=== PATIENT | female | born 1970 | race Caucasian/White ===

== ENCOUNTER → 2019-02-15 | Outpatient (CLI) | payer BC, MEDICARE ==
[~2019-02-15] MED LIST: ALBU90OI INH; AMOX500 PO; AZIT250 PO; Ambien PO; BENZ100A PO; BUTASPCAF PO; BUTONI; CIPR500 PO; CLIN150 PO; CONEST.625 PO; CYAN100 PO; Coumadin6 MG PO; Cyclobenzaprine5 MG PO; DIPATR PO; ERGO50000 PO; ESCI10; ESCI10 PO; ESTNORT; ESTR1; ESTROGEN-METHY1 EAC1 PO; FLUC200 PO; FLUD.1 PO; GABA100; GABA300; GABA400; GABA600 PO; GABAPENTIN; HORMONES; HYDACE5 PO; HYDACE7.5; HYDACE7.5 PO; HYDGUAL120 PO; HYDMOR2 PO; HYDMOR4; HYDMOR4 PO; HYDMOR8 PO; LEVFLO500 PO; MECL25 PO; METR250 PO; Macrodantin100 MG PO; NEURONTIN; OXYACE5T PO; OXYACE7.5T PO; PROC10 PO; PROC25S PR; PROM12.5S PR; PROM25; PROM25 PO; PROM50S; RXONDA4ODT MM; RXOXYACE PO; RXPROM25 PO; RXTRAM50 PO; STADOL NASAL SPRAY; SULF10OPSA OS; SYNTEST; Synthroid125 MCG PO; TIZA4; TIZA4 PO; TOPI100; TOPI100 PO; TRAACE PO; TRAZ100 PO; Topamax PO; WARF1 PO; WARF5 PO; XARELTO20 MG PO; ZANAFLEX PO; ZOLP10; Zanaflex4 MG PO; Zofran Odt8 MG SL; [UNRECOGNIZED DRUG - OTHER] PO
[2019-02-15 19:17] LABS: Alanine Aminotransfer (ALT/SGP 19 U/L (12-78); Albumin, Blood 3.3 g/dL (3.4-5.0); Albumin/Globulin Ratio 0.9 (0.8-1.8); Alk Phos 116 U/L (50-136); Anion Gap 5 mmol/L (6-16); Aspartate Aminotrans (AST/SGOT 28 U/L (12-37); Bilirubin, Total 0.5 mg/dL (0.1-1.0); Blood Urea Nitrogen 10 mg/dL (8-24); Bun/Creatinine Ratio 11.2 (12.0-20.0); CO2, Blood 22 mmol/L (21-32); Calcium, Blood 8.1 mg/dL (8.5-10.1); Chloride, Blood 113 mmol/L (98-108); Creatinine, Blood 0.89 mg/dL (0.40-1.00); Globulin, Blood 3.5 g/dL (2.2-4.0); Glomerular Filtration Rate >60 (60-); Glucose, Blood 104 mg/dL (70-99); Potassium, Blood 4.7 mmol/L (3.5-5.5); Sodium, Blood 140 mmol/L (136-145); Total Protein, Blood 6.8 g/dL (6.4-8.2)
[2019-02-15 19:47] LABS: Percent Saturation 29.4 % (15.0-50.0)
== END | disposition home or self-care (01) ==
LOC: LAB SHORT 18:06 → LAB 18:06
PROVIDERS: Internal Medicine Hematology & Oncology
DX: D50.9 Iron deficiency anemia, unspecified (principal)
CPT/HCPCS: 80053; 83540; 83550

== ENCOUNTER 2019-02-28 14:29 | Emergency (ER) | payer BC, MEDICARE ==
[~2019-02-28] VITALS: Ht 167.6 cm; Wt 77.1 kg
[2019-02-28 16:58] LABS: BASOPHILS ABSOLUTE AUTO 0.03 K/mm3 (0.00-0.23); BASOPHILS PERCENT AUTO 1 % (0-2); EOSINOPHILS PERCENT AUTO 2 % (0-6); Hematocrit 37.3 % (33.0-51.0); Hemoglobin 11.1 g/dL (11.5-16.0); IMMATURE GRAN ABSOLUTE AUTO 0.01 K/mm3 (0.00-0.10); IMMATURE GRAN PERCENT AUTO 0 % (0-1); LYMPHOCYTES ABSOLUTE AUTO 0.72 K/mm3 (0.84-5.20); LYMPHOCYTES PERCENT AUTO 17 % (21-46); MONOCYTES ABSOLUTE AUTO 0.24 K/mm3 (0.16-1.47); MONOCYTES PERCENT AUTO 6 % (4-13); Mean Corpuscular HGB 25.9 pg (26.0-34.0); Mean Corpuscular HGB Conc 29.8 g/dL (31.5-36.5); Mean Corpuscular Volume 87 fL (80-100); Mean Platelet Volume 11.6 fL (9.1-12.4); NEUTROPHILS ABSOLUTE AUTO 3.11 K/mm3 (1.96-9.15); NEUTROPHILS PERCENT AUTO 74 % (41-73); Platelet Count 232 K/mm3 (150-400); RDW Coefficient Variation 15.5 % (11.7-14.2); RDW Standard Deviation 48.7 fL (35.1-46.3); Red Blood Cell Count 4.29 M/mm3 (3.80-5.20); White Blood Cell Count 4.21 K/mm3 (4.00-11.30)
[2019-02-28 17:24] LABS: Alanine Aminotransfer (ALT/SGP 19 U/L (12-78); Albumin, Blood 2.8 g/dL (3.4-5.0); Albumin/Globulin Ratio 0.8 (0.8-1.8); Alk Phos 103 U/L (50-136); Anion Gap 8 mmol/L (6-16); Aspartate Aminotrans (AST/SGOT 18 U/L (12-37); Bilirubin, Total 0.2 mg/dL (0.1-1.0); Blood Urea Nitrogen 10 mg/dL (8-24); Bun/Creatinine Ratio 9.8 (12.0-20.0); CO2, Blood 20 mmol/L (21-32); Calcium, Blood 7.4 mg/dL (8.5-10.1); Chloride, Blood 115 mmol/L (98-108); Creatinine, Blood 1.02 mg/dL (0.40-1.00); Globulin, Blood 3.4 g/dL (2.2-4.0); Glomerular Filtration Rate >60 (60-); Glucose, Blood 79 mg/dL (70-99); Potassium, Blood 3.9 mmol/L (3.5-5.5); Sodium, Blood 143 mmol/L (136-145); Total Protein, Blood 6.2 g/dL (6.4-8.2); Troponin I <0.015 ng/mL (0.000-0.040)
== END 2019-02-28 18:01 | disposition home or self-care (01) ==
LOC: ER 14:29
PROVIDERS: Emergency Medicine
DX: R55 Syncope and collapse (principal); Z88.8 Allergy status to other drugs, medicaments and biological substances; Z88.6 Allergy status to analgesic agent; Z88.0 Allergy status to penicillin; Z88.2 Allergy status to sulfonamides; Z88.5 Allergy status to narcotic agent; Z79.899 Other long term (current) drug therapy; G43.909 Migraine, unspecified, not intractable, without status migrainosus
CPT/HCPCS: 73610; 80053; 83735; 84484; 85025; 93005; 93010; 96374; 99284-25; J1200; J7030

== ENCOUNTER 2019-03-19 10:18 | Day surgery (SDC) | payer BC, MEDICARE ==
[~2019-03-19] VITALS: Ht 170.2 cm; Wt 78.1 kg
[2019-03-19] MEDS ORDERED: WARF7.5 (11:15)
--- NOTE | 2019-03-19 12:52 | NUR ---
03/19/19 1252 Aicha Brito AFTER MULTIPKLE IV ATTEMPTS DR CUMMINGS STARTED AN IJ LINE. PT TOLERATED PROCEDURE WELL WITH A LITTLE NAUSEA, BENEDRYL WAS GIVE PER ARIE CUMMINGS.
--- NOTE | 2019-03-19 13:36 | NUR ---
03/19/19 1336 Aicha Brito 500 ML BOLUS OF LR GIVEN DURING PROCEDURE PER DR. CUMMINGS.
--- NOTE | 2019-03-19 14:33 | NUR ---
03/19/19 1433 Veronika Mcnamara PT COMPLAINED OF NAUSEA UPON ARRIVING TO STEP DOWN. REST OF THE IV BAG TO BE FINISHED PER DR CUMMINGS'S ORDERS. DR OSEGUERA NOTIFIED OF PT'S NAUSEA. DR OSEGUERA STATED THAT PT HAD ALLERGIES TO MOST ANTIEMETICS. PT DID NOT VOMIT WHILE IN STEP DOWN. PT STATED NAUSEA "FELT BETTER" AND SHE WANTED TO GO HOME. DR CUMMINGS NOTIFIED. DR CUMMINGS WATCHED RN REMOVE THE IJ AND INSTRUCTED TO HOLD PRESSURE AT THE SITE FOR 5 MINUTES. CATHETER TIP WAS INTACT UPON REMOVAL. OP SITE APPLIED AT THE SITE AFTER 5 MINUTES OF PRESSURE. NO OOZING VISABLE. RN INSTRUCTED PT TO CONTACT DR OSEGUERA'S OFFICE IS OOZING OCCURS AND TO HOLD PRESSURE AT THE SITE. PT VERBALIZED UNDERSTANDING.
== END 2019-03-19 14:30 | disposition home or self-care (01) ==
LOC: ORSCSDS 10:18
PROVIDERS: Student in an Organized Health Care Education/Training Program
PROC: 0DJD8ZZ Inspection of Lower Intestinal Tract, Via Natural or Artificial Opening Endoscopic (ICD-10-PCS; principal; 2019-03-19 11:15)
DX: K62.5 Hemorrhage of anus and rectum (principal); D64.9 Anemia, unspecified; K64.8 Other hemorrhoids; G60.0 Hereditary motor and sensory neuropathy; Z86.718 Personal history of other venous thrombosis and embolism; Z79.01 Long term (current) use of anticoagulants; D46.9 Myelodysplastic syndrome, unspecified; Z79.899 Other long term (current) drug therapy
CPT/HCPCS: J1100; J1200; J2001; J2704; J7120

== ENCOUNTER → 2019-03-30 | Outpatient (CLI) | payer BC, MEDICARE ==
[~2019-03-30] MED LIST changes: +WARF7.5
[2019-03-30 15:34] LABS: Percent Saturation 35.3 % (15.0-50.0)
== END | disposition home or self-care (01) ==
LOC: LAB 15:06 → LAB SHORT 15:06
PROVIDERS: Internal Medicine Hematology & Oncology
DX: D64.9 Anemia, unspecified (principal)
CPT/HCPCS: 82728; 83540; 83550

== ENCOUNTER 2019-09-12 10:54 | Observation (INO) | payer BC, MEDICARE ==
[~2019-09-12] VITALS: Ht 167.6 cm; Wt 87.1 kg
[~2019-09-12 10:54] MED LIST changes: +TROKENDI XR200 MG PO
[2019-09-12] MEDS ORDERED: Ropinirole HCl0.5 MG PO (11:25)
[2019-09-12] MEDS ORDERED: XARELTO20 MG PO (11:26)
[2019-09-12 12:01] LABS: BASOPHILS ABSOLUTE AUTO 0.09 K/mm3 (0.00-0.23); BASOPHILS PERCENT AUTO 2 % (0-2); EOSINOPHILS PERCENT AUTO 5 % (0-6); Hematocrit 40.3 % (33.0-51.0); Hemoglobin 11.4 g/dL (11.5-16.0); IMMATURE GRAN ABSOLUTE AUTO 0.01 K/mm3 (0.00-0.10); IMMATURE GRAN PERCENT AUTO 0 % (0-1); LYMPHOCYTES ABSOLUTE AUTO 1.07 K/mm3 (0.84-5.20); LYMPHOCYTES PERCENT AUTO 18 % (21-46); MONOCYTES PERCENT AUTO 5 % (4-13); Mean Corpuscular HGB 23.5 pg (26.0-34.0); Mean Corpuscular HGB Conc 28.3 g/dL (31.5-36.5); Mean Corpuscular Volume 83 fL (80-100); Mean Platelet Volume 9.7 fL (9.1-12.4); NEUTROPHILS ABSOLUTE AUTO 4.17 K/mm3 (1.96-9.15); NEUTROPHILS PERCENT AUTO 70 % (41-73); Platelet Count 253 K/mm3 (150-400); RDW Coefficient Variation 14.6 % (11.7-14.2); RDW Standard Deviation 43.8 fL (35.1-46.3); Red Blood Cell Count 4.85 M/mm3 (3.80-5.20); White Blood Cell Count 5.94 K/mm3 (4.00-11.30)
[2019-09-12 12:26] LABS: Alanine Aminotransfer (ALT/SGP 25 U/L (12-78); Albumin, Blood 3.5 g/dL (3.4-5.0); Albumin/Globulin Ratio 0.8 (0.8-1.8); Alk Phos 100 U/L (50-136); Anion Gap 6 mmol/L (6-16); Aspartate Aminotrans (AST/SGOT 10 U/L (12-37); Bilirubin, Total 0.2 mg/dL (0.1-1.0); Blood Urea Nitrogen 11 mg/dL (8-24); Bun/Creatinine Ratio 10.6 (12.0-20.0); CO2, Blood 20 mmol/L (21-32); Calcium, Blood 8.6 mg/dL (8.5-10.1); Chloride, Blood 114 mmol/L (98-108); Creatinine, Blood 1.04 mg/dL (0.40-1.00); Globulin, Blood 4.4 g/dL (2.2-4.0); Glomerular Filtration Rate >60 (60-); Glucose, Blood 106 mg/dL (70-99); Potassium, Blood 3.6 mmol/L (3.5-5.5); Sodium, Blood 140 mmol/L (136-145); Total Protein, Blood 7.9 g/dL (6.4-8.2)
[2019-09-12] MEDS ORDERED: Spironolactone25 MG PO (14:21)
[2019-09-12] MEDS ORDERED: AMIL5 PO (14:22)
[2019-09-12] MEDS ORDERED: PANTOPRAZOLE SO40 M2 PO (14:26)
[2019-09-12] MEDS ORDERED: CYANOCOBAL1000 MCG/1 IM (14:27)
[2019-09-12] MEDS ORDERED: HYDMOR8 PO (15:23)
[2019-09-12] MEDS ORDERED: GABAPENTIN600 MG PO (15:26)
[2019-09-12] MEDS ORDERED: Midodrine HCl10 MG PO (15:28)
[2019-09-12] MEDS ORDERED: Fludrocortison0.1 MG PO (15:28)
[2019-09-12] MEDS ORDERED: HYDCOR10 PO (15:34)
[2019-09-12 16:37] LABS: Anion Gap 6 mmol/L (6-16); Blood Urea Nitrogen 11 mg/dL (8-24); Bun/Creatinine Ratio 11.1 (12.0-20.0); CO2, Blood 19 mmol/L (21-32); Calcium, Blood 8.4 mg/dL (8.5-10.1); Chloride, Blood 117 mmol/L (98-108); Creatinine, Blood 0.99 mg/dL (0.40-1.00); Glomerular Filtration Rate >60 (60-); Glucose, Blood 98 mg/dL (70-99); Sodium, Blood 142 mmol/L (136-145)
--- NOTE | 2019-09-12 17:06 | NUR ---
Gabapentin Home Med Rec Called Dr. James LEPE Gabapentin on EMAR not matching Med Rec per patient. Orders received.
--- NOTE | 2019-09-12 18:42 | NUR ---
Shift Summary A/Ox4. Pleasant and cooperative with care. Patient arrived from ER @ 1520 via stretcher and transferred over x 1 assist. Report given by ER states patient is positive for orthostatic hypotension. Bed alarm on, 1 p SBA, bedside commode at this time for safety. Medicated for nausea x 1 and chronic pain x 1. No other concerns at this time.
[2019-09-12] MEDS ORDERED: Diphenhydramine50 M1 PO (18:55)
--- NOTE | 2019-09-12 20:39 | NUR ---
2017: SPOKE TO JESSI POSEY REGARDING PATIENT REQ FOR BENEDRYL 50MG IV Q4 SHE TAKES AT HOME. ALSO CORTISONE SHE TAKES 20MG IN THE AM AND 10 MG AT DINNER TIME. SHE SAYS IT WIRES HER UP IF SHE TAKES IT AT BEDTIME. ALSO FLORINEF SHE TAKES IN THE AM NOT AT BEDTIME. RELAYED THIS INFO TO JESSI POSEY. 2041: PATIENT JUST HAD HER 2ND WATERY STOOL AMIN IN COLOR SMELL LIKE C-DIFF. PER PATIENT SHE WAS DX WITH CDIFF SEVERAL YEARS AGO. TOOK SAMPLE AND PLACED ON CONTACT ISOLATION PER PROTOCOL PENDING RESULTS. SPOKE TO VENEER SANDER REGARDING PROPER PROCEDURE TO ORDER THE LAB TO R/O CDIFF.
--- NOTE | 2019-09-12 23:51 | NUR ---
PT REFUSES SCDS. PT ON [place]
[2019-09-13 06:20] LABS: BASOPHILS ABSOLUTE AUTO 0.08 K/mm3 (0.00-0.23); BASOPHILS PERCENT AUTO 1 % (0-2); EOSINOPHILS ABSOLUTE AUTO 0.33 K/mm3 (0.00-0.68); EOSINOPHILS PERCENT AUTO 6 % (0-6); Hematocrit 37.6 % (33.0-51.0); IMMATURE GRAN ABSOLUTE AUTO 0.02 K/mm3 (0.00-0.10); IMMATURE GRAN PERCENT AUTO 0 % (0-1); LYMPHOCYTES ABSOLUTE AUTO 1.49 K/mm3 (0.84-5.20); LYMPHOCYTES PERCENT AUTO 26 % (21-46); MONOCYTES ABSOLUTE AUTO 0.33 K/mm3 (0.16-1.47); MONOCYTES PERCENT AUTO 6 % (4-13); Mean Corpuscular HGB 24.1 pg (26.0-34.0); Mean Corpuscular HGB Conc 29.3 g/dL (31.5-36.5); Mean Corpuscular Volume 83 fL (80-100); Mean Platelet Volume 9.9 fL (9.1-12.4); NEUTROPHILS ABSOLUTE AUTO 3.48 K/mm3 (1.96-9.15); NEUTROPHILS PERCENT AUTO 61 % (41-73); Platelet Count 250 K/mm3 (150-400); RDW Coefficient Variation 14.6 % (11.7-14.2); RDW Standard Deviation 43.7 fL (35.1-46.3); Red Blood Cell Count 4.56 M/mm3 (3.80-5.20); White Blood Cell Count 5.73 K/mm3 (4.00-11.30)
--- NOTE | 2019-09-13 06:29 | NUR ---
END OF SHIFT: PATIENT SLEPT INTERMITTENTLY; C/O PAIN 5-8/10 AND WAS TREATED WITH MEDS PER EMAR, REPOSITIONING, WARM BLANKETS. SHE WAS PLEASANT AND COOPERATIVE WITH CARE. I THINK HER PAIN WAS SOMEWHAT CONTROLLED AND SHE MAY NEED TO DISCUSS PAIN COVERAGE WITH THE DOCTOR. PATIENT WAS OOB TO THE COMMODE FREQUENTLY WITH WATERY STOOLS AND A SAMPLE WS SENT TO RULE OUT C-DIFF. PT MEETS THE CRITERIA. ALL OF THIS WAS REPORTED TO JESSI POSEY. AND THE DAY NURSE WELL. BED LOW AND ALARMED. CALL DOSHI WITHIN REACH
[2019-09-13 06:37] LABS: Anion Gap 8 mmol/L (6-16); Blood Urea Nitrogen 10 mg/dL (8-24); Bun/Creatinine Ratio 10.1 (12.0-20.0); CO2, Blood 20 mmol/L (21-32); Calcium, Blood 8.5 mg/dL (8.5-10.1); Chloride, Blood 117 mmol/L (98-108); Creatinine, Blood 0.99 mg/dL (0.40-1.00); Glomerular Filtration Rate >60 (60-); Glucose, Blood 92 mg/dL (70-99); Magnesium, Blood 1.8 mg/dL (1.6-2.4); Potassium, Blood 3.7 mmol/L (3.5-5.5); Sodium, Blood 145 mmol/L (136-145)
--- NOTE | 2019-09-13 16:50 | NUR ---
Initial palliative care consult: Meri is a 49 year old lady with a history of muscular dystrophy, lisa's disease dx'd in 2018, hypotension. She was admitted on 09/12/19 as she was brought in via ambulance from Dr. Aparicio's office. She tells this marketing copywriter that a local doctor does not think that she has lisa's disease and this is very frustrating to her. Meri lives with her . She has two adult children ages 22 and 29. She reports that she has a good family and friend support system. She states she has really good health insurance through her 's work. She has not worked outside of her home for the past 13 or so years due to her chronic medical problems. She states she is normally independent with ADLs at home and has all the medical equipment she needs at home. She does report that when her blood pressure is low and she feels off that she doesn't get up unless her is home. 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 Meri states she feels that she has to be an advocate for herself. She states it is exhausting to have to feel like she has to explain herself to doctors. She states once in [place] she saw a psychologist during an admission to prove that she did not have any mental illness because of her multiple admissions. She normally goes to [facility] in [place] when she has to be admitted as she reports she had a bad experience in the ER at [facility]. She does state that she has been happy with her care here this visit. This visit was mainly a therapeutic visit to establish a rapport and to evaluate how she is coping with her chronic illness. She is followed by a pain specialist in [place] and has been prescribed her pain medication as an inpatient to match what the [place] doctor has her on according to her nurse. She has multiple drug allergies. PC will plan to continue to follow for therapeutic visits and symptom managment as needed.
--- NOTE | 2019-09-13 17:22 | NUR ---
SHIFT SUMMARY SPOKE WITH DR. WILLETT OFFICE ABOUT PT MEDICATIONS AND OFFICE REPORTED THEY WEREN'T HER PCP. SPOKE WITH PT AND SHE REPORTED THEY WERE. DID OBTAIN PAIN CONTROL MDS NAME AND NUMBER. CALLED AND SPOKE WITH DR. ROSINA MURRAY'S OFFICE AND THEIR LAST SCRIPTS THAT WERE WRITTEN IN JUN WERE FOR DILAUDID 8MG TID NTE 3 TABS PER DAY. PT REPORTS SHE TAKES DILAUDID 8MG EVERY 3 HOURS WHEN AT HOME. WHEN ASKED HOW SHE DOESN'T RUN OUT SHE SAYS "I DON'T KNOW I JUST HAVE ENOUGH". BECAME ANXIOUS AND DEFENSIVE WHEN SPEAKING TO HER ABOUT BENEDRYL FREQUENCY AND INSISTED NOC RN OBTAINED ORDER TO INCREASE IT TO Q4H. WAS ABLE TO CORRECT IN EMR. FAMILY IN AND OUT OF ROOM. DID ASSIST WITH HER GOING TO COMMODE-SHE SAT ON SIDE OF BED FOR A COUPLE MINUTES AND THEN SLID TO COMMODE WITHOUT STANDING UP STRAIGHT. REPORTED FEELING VERY NAUSEATED AT THE TIME. ABLE TO ANSWER IN 2 WORD SENTENCES. APPEARS SHAKEY MOST OF THE TIME.
--- NOTE | 2019-09-14 06:02 | NUR ---
SHIFT SUMMARY NO ACUTE EVENTS OVERNIGHT. PATIENT REQUIRING MULTIPLE DOSES OF PAIN MEDICATION AND REQUESTED IV BENADRYL ON MULTIPLE OCCASIONS FOR NAUSEA. PATIENT STATES SHE HAS OFF/ON VOMITING BUT NO VOMIT OBSERVED BY THIS NURSE. AAOX4. UP TO BSC WITH 1 PERSON ASSIST. USES CALL LIGHT APPROPRIATELY. PATIENT DID NOT SLEEP AT ALL DURING NOC SHIFT. WILL CONTINUE TO MONITOR.
[2019-09-14 06:07] LABS: Anion Gap 8 mmol/L (6-16); Blood Urea Nitrogen 12 mg/dL (8-24); Bun/Creatinine Ratio 11.5 (12.0-20.0); CO2, Blood 19 mmol/L (21-32); Calcium, Blood 8.1 mg/dL (8.5-10.1); Chloride, Blood 117 mmol/L (98-108); Creatinine, Blood 1.04 mg/dL (0.40-1.00); Glomerular Filtration Rate >60 (60-); Glucose, Blood 93 mg/dL (70-99); Magnesium, Blood 1.8 mg/dL (1.6-2.4); Potassium, Blood 3.4 mmol/L (3.5-5.5); Sodium, Blood 144 mmol/L (136-145)
[2019-09-14 14:07] LABS: Bun/Creatinine Ratio 11.1 (12.0-20.0); Calcium, Blood 8.4 mg/dL (8.5-10.1); Creatinine, Blood 1.08 mg/dL (0.40-1.00); Potassium, Blood 4.2 mmol/L (3.5-5.5)
[2019-09-14] MEDS ORDERED: POTCHL20ER PO (15:48)
[2019-09-14] MEDS ORDERED: Anti-Diarrheal2 MG PO (15:49)
--- NOTE | 2019-09-14 15:52 | NUR ---
DISCHARGE SUMMARY CORBY DISCHARGING HOME, DECLINED HH. STATES SHE WANTS TO MAKE HER OWN APPOINTMENTS WITH [facility] AND WITH [facility], BUT I MADE AN APPOINTMENT FOR HER FOR SEP [address] GILL. PT AND OT WORKED IWTH HER, WITH ENCOURAGING SLOW MOVEMENT AND TAKING TIME IN SITITNG POSITION, HER ORTHOSTATICS ARE DOING MUCH BETTER, SEE PT AND OT NOTES FROM TODAY. POWERGLIDE REMOVED, PAPERWORK GONE OVER, MEDS FAXED TO [facility]. PT LEAVING VIA WHEELCHAIR.
== END 2019-09-14 16:43 | disposition home health service (06) ==
LOC: ER 10:54 → MEDS 10:55
PROVIDERS: Emergency Medicine; ADMIT Internal Medicine
DX: I95.1 Orthostatic hypotension (principal); G90.9 Disorder of the autonomic nervous system, unspecified; R19.7 Diarrhea, unspecified; E87.6 Hypokalemia; E27.49 Other adrenocortical insufficiency; G43.909 Migraine, unspecified, not intractable, without status migrainosus; G71.09 Other specified muscular dystrophies; D51.0 Vitamin B12 deficiency anemia due to intrinsic factor deficiency; N25.89 Other disorders resulting from impaired renal tubular function; M10.9 Gout, unspecified; E66.9 Obesity, unspecified; Z68.29 Body mass index [BMI] 29.0-29.9, adult; Z95.0 Presence of cardiac pacemaker; Z90.49 Acquired absence of other specified parts of digestive tract; Z88.0 Allergy status to penicillin; Z88.1 Allergy status to other antibiotic agents; Z88.2 Allergy status to sulfonamides; Z88.5 Allergy status to narcotic agent; Z88.6 Allergy status to analgesic agent; Z88.8 Allergy status to other drugs, medicaments and biological substances; Z79.01 Long term (current) use of anticoagulants; Z79.899 Other long term (current) drug therapy; Z86.718 Personal history of other venous thrombosis and embolism
CPT/HCPCS: 36415; 80048; 80053; 82330; 83735; 85025; 87493; 93005; 93010; 96361; 96365; 96375; 96376; 97110; 97162; 97167; 97530; 99285-25; C1751; G0378; J1200; J3480; J7030; J7040; Q0163

== ENCOUNTER 2020-02-22 17:36 | Emergency (ER) | payer BC, MEDICARE ==
[~2020-02-22] VITALS: Ht 167.6 cm; Wt 74.8 kg
[~2020-02-22 17:36] MED LIST changes: +Anti-Diarrheal2 MG PO; +DOCU100 PO; +Diphenhydramine50 M1 IV; -ESTROGEN-METHY1 EAC1 PO; +Fludrocortison0.1 MG PO; +Midodrine HCl10 MG PO; +PANTOPRAZOLE SO40 M2 PO; +POTCHL20ER PO; +SENN187 PO; +SPIR25 PO; +Spironolactone25 MG PO; -TRAZ100 PO
[2020-02-22 20:32] LABS: BASOPHILS ABSOLUTE AUTO 0.03 K/mm3 (0.00-0.23); BASOPHILS PERCENT AUTO 1 % (0-2); EOSINOPHILS PERCENT AUTO 2 % (0-6); Hematocrit 39.4 % (33.0-51.0); Hemoglobin 11.2 g/dL (11.5-16.0); IMMATURE GRAN ABSOLUTE AUTO 0.01 K/mm3 (0.00-0.10); IMMATURE GRAN PERCENT AUTO 0 % (0-1); LYMPHOCYTES ABSOLUTE AUTO 0.96 K/mm3 (0.84-5.20); LYMPHOCYTES PERCENT AUTO 23 % (21-46); MONOCYTES ABSOLUTE AUTO 0.48 K/mm3 (0.16-1.47); MONOCYTES PERCENT AUTO 11 % (4-13); Mean Corpuscular HGB 23.9 pg (26.0-34.0); Mean Corpuscular HGB Conc 28.4 g/dL (31.5-36.5); Mean Corpuscular Volume 84 fL (80-100); Mean Platelet Volume 10.5 fL (9.1-12.4); NEUTROPHILS ABSOLUTE AUTO 2.66 K/mm3 (1.96-9.15); NEUTROPHILS PERCENT AUTO 63 % (41-73); Platelet Count 219 K/mm3 (150-400); Red Blood Cell Count 4.69 M/mm3 (3.80-5.20); White Blood Cell Count 4.24 K/mm3 (4.00-11.30)
[2020-02-22 20:54] LABS: Albumin, Blood 3.6 g/dL (3.4-5.0); Albumin/Globulin Ratio 0.8 (0.8-1.8); Bilirubin, Total 0.5 mg/dL (0.1-1.0); Bun/Creatinine Ratio 11.8 (12.0-20.0); Calcium, Blood 8.6 mg/dL (8.5-10.1); Creatinine, Blood 1.1 mg/dL (0.40-1.00); Globulin, Blood 4.6 g/dL (2.2-4.0); Total Protein, Blood 8.2 g/dL (6.4-8.2)
[2020-02-22] MEDS ORDERED: Keflex500 MG PO (21:03)
[2020-02-23] MEDS ORDERED: FOLI1 PO (13:18)
[2020-02-23] MEDS ORDERED: TRAZ100 PO (13:18)
[2020-02-23] MEDS ORDERED: HYDMOR8 PO (13:18)
[2020-02-23] MEDS ORDERED: Sodium Bicarbo650 MG PO (13:18)
[2020-02-23] MEDS ORDERED: DIPHENHYDR50 MG/1 M1 IV (13:21)
[2020-02-23] MEDS ORDERED: Ropinirole HCl0.5 MG PO (13:22)
[2020-02-23] MEDS ORDERED: TROKENDI XR200 MG PO (13:23)
[2020-02-23] MEDS ORDERED: GABAPENTIN600 MG PO (13:23)
[2020-02-23] MEDS ORDERED: XARELTO20 M1 PO (13:23)
[2020-02-23] MEDS ORDERED: AMIL5 PO (13:58)
[2020-02-23] MEDS ORDERED: Potassium Chlo20 ME1 PO (13:58)
[2020-02-23] MEDS ORDERED: SPIR25 PO (13:59)
[2020-02-23] MEDS ORDERED: ESTROGEN-METHY1 EAC1 PO (14:09)
[2020-02-23] MEDS ORDERED: Zanaflex4 MG PO (14:09)
[2020-02-23] MEDS ORDERED: Hydrocortisone5 MG PO (14:10)
[2020-02-23] MEDS ORDERED: CYANOCOBAL1000 MCG/1 IM (14:10)
[2020-02-23] MEDS ORDERED: Midodrine HCl10 MG PO (14:11)
[2020-02-23] MEDS ORDERED: Fludrocortison0.1 MG PO (14:11)
== END 2020-02-22 21:28 | disposition home or self-care (01) ==
LOC: ER 17:36
PROVIDERS: Emergency Medicine
DX: L03.113 Cellulitis of right upper limb (principal); M79.89 Other specified soft tissue disorders; L53.9 Erythematous condition, unspecified; G71.00 Muscular dystrophy, unspecified; C95.90 Leukemia, unspecified not having achieved remission; Z86.718 Personal history of other venous thrombosis and embolism; Z88.0 Allergy status to penicillin; Z88.1 Allergy status to other antibiotic agents; Z88.2 Allergy status to sulfonamides; Z88.5 Allergy status to narcotic agent; Z88.6 Allergy status to analgesic agent; Z88.8 Allergy status to other drugs, medicaments and biological substances; Z79.899 Other long term (current) drug therapy
CPT/HCPCS: 36415; 80053; 83605; 84145; 85025; 99283; A9270-GY

== ENCOUNTER → 2020-02-26 | Outpatient (CLI) | payer BC, MEDICARE ==
[~2020-02-26] MED LIST changes: +AMIL5 PO; +CYANOCOBAL1000 MCG/1 IM; +DIPHENHYDR50 MG/1 M1 IM; +DIPHENHYDR50 MG/1 M1 IV; +ESTROGEN-METHY1 EAC1 PO; +FOLI1 PO; +GABAPENTIN600 MG PO; +Hydrocortisone5 MG PO; +Keflex500 MG PO; +Potassium Chlo20 ME1 PO; +Ropinirole HCl0.5 MG PO; +Sodium Bicarbo650 MG PO; +TRAZ100 PO; +XARELTO20 M1 PO
== END | disposition home or self-care (01) ==
LOC: LAB SHORT 18:07 → LAB 18:07
DX: L08.9 Local infection of the skin and subcutaneous tissue, unspecified (principal)
CPT/HCPCS: 87070; 87075; 87077; 87186; 87205

== ENCOUNTER 2020-02-27 15:08 | Emergency (ER) | payer BC, MEDICARE ==
[~2020-02-27] VITALS: Ht 170.2 cm; Wt 74.4 kg
[~2020-02-27 15:08] MED LIST changes: -DIPHENHYDR50 MG/1 M1 IM
[2020-02-27] MEDS ORDERED: HYDMOR4 PO (16:19)
[2020-02-27] MEDS ORDERED: DIPHENHYDR50 MG/1 M1 IM (16:27)
== END 2020-02-27 18:28 | disposition home or self-care (01) ==
LOC: ER 15:08
DX: L03.113 Cellulitis of right upper limb (principal); Z79.899 Other long term (current) drug therapy; Z86.718 Personal history of other venous thrombosis and embolism; Z88.6 Allergy status to analgesic agent; Z88.8 Allergy status to other drugs, medicaments and biological substances; Z88.0 Allergy status to penicillin; Z88.2 Allergy status to sulfonamides; Z88.5 Allergy status to narcotic agent; G71.00 Muscular dystrophy, unspecified
CPT/HCPCS: 76882; 96372; 99283-25; J1170

== ENCOUNTER 2020-03-23 08:43 | Emergency (ER) | payer BC, MEDICARE ==
[~2020-03-23] VITALS: Ht 170.2 cm; Wt 76.7 kg
[~2020-03-23 08:43] MED LIST changes: +DIPHENHYDR50 MG/1 M1 IM
== END 2020-03-23 09:45 | disposition home or self-care (01) ==
LOC: ER 08:43
DX: G43.909 Migraine, unspecified, not intractable, without status migrainosus (principal); Z88.0 Allergy status to penicillin; Z88.2 Allergy status to sulfonamides; Z88.5 Allergy status to narcotic agent; Z88.8 Allergy status to other drugs, medicaments and biological substances; Z79.899 Other long term (current) drug therapy; Z86.718 Personal history of other venous thrombosis and embolism
CPT/HCPCS: 96372; 99283-25; J0780; J1200; J1885

== ENCOUNTER 2020-05-20 10:07 | Day surgery (SDC) | payer BC, MEDICARE ==
[~2020-05-20] VITALS: Ht 167.6 cm; Wt 78.0 kg
--- NOTE | 2020-05-20 11:30 | NUR ---
VANCO PREVIOUSLY STARTED BY SONIDO BAR RN TO RIGHT HAND. HAND APPEARS WARM AND RED, PROVIDER ORDERED TO STOP VANCO AND START CLINDAMYCIN. REDNESS OUTLINE MARKED WITH BLACK MARKER. WILL CONTINUE TO MONITOR.
--- NOTE | 2020-05-20 12:36 | NUR ---
1110 STARTED VANCOMYCIN TO THE 24G PIV TO THE RIGHT HAND. STAFF NOTICED REDNESS TO THE PIV SITE. STOPPED VANCOMYCIN AND MD NOTIFIED. VANCOMYCIN IV DISCONTINUED AND CLINDAMYCIN IV STARTED. CONTINUED TO MONITOR.
--- NOTE | 2020-05-20 13:09 | NUR ---
RIGHT HAND APPEARS TO BE PINK, WARM, AND DRY. REDNESS HAS SUBSIDED. PT REPORTS NO PAIN OR SWELLING. PERIPHERAL IV STILL IN PLACE, TEGADERM INTACT, IV SALINE LOCKED. MEDIPORT SITE ON CHEST APPEARS SOFT NON TENDER. DRESSING INTACT. PT C/O NAUSEA, PREVIOUSLY MEDICATED DURING PROCEDURE. PT APPEARS DROWSY. WILL CONTINUE TO MONITOR.
--- NOTE | 2020-05-20 14:40 | NUR ---
PT VERBALIZES UNDERSTANDING WRITTEN AND VERBAL ORDERS. PT DRESSES SELF WITHOUT DIFF. R UPPER CHEST SITE REMAINS CLEAR. DRY BANDAGE WITH TEGADERM IN PLACE. NO BLEEDING NOTED. VSS. PT IV DC'D.CATH INTACT. PRESSURE DSG APPLIED. PT DC TO HOME VIA SO BY SUSY.
== END 2020-05-20 14:45 | disposition home or self-care (01) ==
LOC: MHTC 10:07
DX: T82.7XXA Infection and inflammatory reaction due to other cardiac and vascular devices, implants and grafts, initial encounter (principal); Y83.1 Surgical operation with implant of artificial internal device as the cause of abnormal reaction of the patient, or of later complication, without mention of misadventure at the time of the procedure; I95.9 Hypotension, unspecified; I12.9 Hypertensive chronic kidney disease with stage 1 through stage 4 chronic kidney disease, or unspecified chronic kidney disease; N18.9 Chronic kidney disease, unspecified; D46.9 Myelodysplastic syndrome, unspecified; Z95.0 Presence of cardiac pacemaker; G60.0 Hereditary motor and sensory neuropathy; Z88.5 Allergy status to narcotic agent; Z88.6 Allergy status to analgesic agent; Z88.2 Allergy status to sulfonamides; Z88.0 Allergy status to penicillin; Z88.8 Allergy status to other drugs, medicaments and biological substances; Z79.899 Other long term (current) drug therapy; Z79.01 Long term (current) use of anticoagulants
CPT/HCPCS: 36561; 76937; 99152; 99153; C1788; C1894; J1200; J1642; J2060; J2250; J3370; J7040

== ENCOUNTER → 2020-08-21 | Outpatient (CLI) | payer BC, MEDICARE ==
[~2020-08-21] MED LIST changes: +CYAN1000I IM; +ESTROGEN-METHY1 EAC3 PO
== END | disposition home or self-care (01) ==
LOC: LAB 15:23 → LAB SHORT 15:23
DX: N18.2 Chronic kidney disease, stage 2 (mild) (principal); D63.1 Anemia in chronic kidney disease; R73.09 Other abnormal glucose; E83.41 Hypermagnesemia
CPT/HCPCS: 85018

== ENCOUNTER 2020-09-11 11:21 | Day surgery (SDC) | payer BC, MEDICARE ==
[~2020-09-11] VITALS: Ht 182.9 cm; Wt 71.0 kg
--- NOTE | 2020-09-11 15:05 | NUR ---
FULL REPORT PROVIDED JAMEY DALY TO ASSUME CARE OF PT IN RECOVERY ROOM.
--- NOTE | 2020-09-11 17:45 | NUR ---
PATIENT GIVEN 50MG OS BENADRYL IV FOR NAUSEA.
--- NOTE | 2020-09-11 18:08 | NUR ---
patient returned to recovery room via bed, A&O, c/o nausea. benadryl iv ordered by Dr Gee
--- NOTE | 2020-09-11 18:15 | NUR ---
PATIENT STATES THAT NAUSEA HAS SUBSIDED
--- NOTE | 2020-09-11 18:30 | NUR ---
IV DECED WITH CATHETER INTACT. DRESSING TO RIGHT UPPER CHEST DRY AND INTACT. C/O DISCOMFORT RIGHT UPPER CHEST WITH MOVEMENT. NAUSEA SUBSIDED. DISCHARGE INSTRUCTIONS AND PRECAUTIONS GIVEN TO PATIENT. PATIENT TRANSFERRED TO [facility] CAR VIA WHEEL CHAIR A&O. DRIVING.
== END 2020-09-11 23:24 | disposition home or self-care (01) ==
LOC: MHTC 11:21
DX: T82.898A Other specified complication of vascular prosthetic devices, implants and grafts, initial encounter (principal); D46.9 Myelodysplastic syndrome, unspecified; G60.0 Hereditary motor and sensory neuropathy; I12.9 Hypertensive chronic kidney disease with stage 1 through stage 4 chronic kidney disease, or unspecified chronic kidney disease; N18.9 Chronic kidney disease, unspecified; Z79.899 Other long term (current) drug therapy; Z88.2 Allergy status to sulfonamides; Z88.6 Allergy status to analgesic agent; Z88.5 Allergy status to narcotic agent; Z88.8 Allergy status to other drugs, medicaments and biological substances; Z88.0 Allergy status to penicillin
CPT/HCPCS: 99152; 99153; J0690; J1200; J1644; J2060; J2250; J2270; J7040

== ENCOUNTER → 2020-11-04 | Outpatient (CLI) | payer BC, MEDICARE ==
[~2020-11-04] MED LIST changes: +AMLO5; +DIPHEN12.5 MG/1 IM; +FLUDROCORTISON0.1 MG PO; +GABA300 PO; +HYDCOR10 PO; +MIDODRINE HCL10 M1 PO; +ROPINIROLE HCL0.5 MG PO; +SODBIC650
[2020-11-04 20:28] LABS: Alanine Aminotransfer (ALT/SGP 24 U/L (12-78); Albumin, Blood 3.3 g/dL (3.4-5.0); Albumin/Globulin Ratio 1.1 (0.8-1.8); Alk Phos 87 U/L (50-136); Anion Gap 5 mmol/L (6-16); Aspartate Aminotrans (AST/SGOT 9 U/L (12-37); Bilirubin, Direct 0.1 mg/dL (0.0-0.3); Bilirubin, Indirect 0.1 mg/dL (0.1-0.7); Bilirubin, Total 0.2 mg/dL (0.1-1.0); Blood Urea Nitrogen 21 mg/dL (8-24); Bun/Creatinine Ratio 25.4 (12.0-20.0); CO2, Blood 19 mmol/L (21-32); Chloride, Blood 118 mmol/L (98-108); Creatinine, Blood 0.83 mg/dL (0.40-1.00); Globulin, Blood 3.1 g/dL (2.2-4.0); Glomerular Filtration Rate >60 (60-); Glucose, Blood 165 mg/dL (70-99); Phosphorus, Blood 1.9 mg/dL (2.5-4.9); Potassium, Blood 4.1 mmol/L (3.5-5.5); Sodium, Blood 142 mmol/L (136-145); Total Protein, Blood 6.4 g/dL (6.4-8.2)
== END | disposition home or self-care (01) ==
LOC: LAB SHORT 14:45 → LAB 14:45
PROVIDERS: Internal Medicine Nephrology
DX: N18.2 Chronic kidney disease, stage 2 (mild) (principal); D63.1 Anemia in chronic kidney disease; N25.81 Secondary hyperparathyroidism of renal origin; E55.9 Vitamin D deficiency, unspecified; E78.00 Pure hypercholesterolemia, unspecified; G60.9 Hereditary and idiopathic neuropathy, unspecified; R76.9 Abnormal immunological finding in serum, unspecified; R94.5 Abnormal results of liver function studies
CPT/HCPCS: 80053; 82248; 84100

== ENCOUNTER 2020-11-05 10:25 | Emergency (ER) | payer BC, MEDICARE ==
[~2020-11-05] VITALS: Ht 170.2 cm; Wt 65.8 kg
[~2020-11-05 10:25] MED LIST changes: -AMLO5; -DIPHEN12.5 MG/1 IM; -FLUDROCORTISON0.1 MG PO; -GABA300 PO; -HYDCOR10 PO; -MIDODRINE HCL10 M1 PO; -ROPINIROLE HCL0.5 MG PO; -SODBIC650
[2020-11-05 11:15] LABS: Calcium, Ionized (POC) 1.25 mmol/L (1.10-1.46); Chloride (POC) 115 mmol/L (98-108); Glucose (ISTAT POC) 108 mg/dL (70-99); Hemoglobin (POC) 12.9 g/dL (12.0-16.0); Potassium (POC) 3.7 mmol/L (3.5-5.5); Sodium (POC) 144 mmol/L (135-148); Total CO2 (POC) 17 mmol/L (21-32)
[2020-11-05 11:27] LABS: BASOPHILS ABSOLUTE AUTO 0.06 K/mm3 (0.00-0.23); BASOPHILS PERCENT AUTO 1 % (0-2); EOSINOPHILS ABSOLUTE AUTO 0.21 K/mm3 (0.00-0.68); EOSINOPHILS PERCENT AUTO 5 % (0-6); Hematocrit 39.3 % (33.0-51.0); Hemoglobin 11.9 g/dL (11.5-16.0); IMMATURE GRAN ABSOLUTE AUTO 0.01 K/mm3 (0.00-0.10); IMMATURE GRAN PERCENT AUTO 0 % (0-1); LYMPHOCYTES ABSOLUTE AUTO 1.46 K/mm3 (0.84-5.20); LYMPHOCYTES PERCENT AUTO 33 % (21-46); MONOCYTES ABSOLUTE AUTO 0.24 K/mm3 (0.16-1.47); MONOCYTES PERCENT AUTO 5 % (4-13); Mean Corpuscular HGB 28.1 pg (26.0-34.0); Mean Corpuscular HGB Conc 30.3 g/dL (31.5-36.5); Mean Corpuscular Volume 93 fL (80-100); Mean Platelet Volume 10.2 fL (9.1-12.4); NEUTROPHILS ABSOLUTE AUTO 2.43 K/mm3 (1.96-9.15); NEUTROPHILS PERCENT AUTO 55 % (41-73); Platelet Count 223 K/mm3 (150-400); RDW Coefficient Variation 17.2 % (11.7-14.2); RDW Standard Deviation 57.8 fL (35.1-46.3); Red Blood Cell Count 4.24 M/mm3 (3.80-5.20); White Blood Cell Count 4.41 K/mm3 (4.00-11.30)
[2020-11-05 11:57] LABS: Alanine Aminotransfer (ALT/SGP 22 U/L (12-78); Albumin, Blood 3.2 g/dL (3.4-5.0); Albumin/Globulin Ratio 0.9 (0.8-1.8); Alk Phos 86 U/L (50-136); Anion Gap 7 mmol/L (6-16); Aspartate Aminotrans (AST/SGOT 13 U/L (12-37); Bilirubin, Total 0.3 mg/dL (0.1-1.0); Blood Urea Nitrogen 21 mg/dL (8-24); Bun/Creatinine Ratio 21.9 (12.0-20.0); CO2, Blood 17 mmol/L (21-32); Chloride, Blood 120 mmol/L (98-108); Creatinine, Blood 0.96 mg/dL (0.40-1.00); Globulin, Blood 3.7 g/dL (2.2-4.0); Glomerular Filtration Rate >60 (60-); Glucose, Blood 113 mg/dL (70-99); Potassium, Blood 3.7 mmol/L (3.5-5.5); Sodium, Blood 144 mmol/L (136-145); Total Protein, Blood 6.9 g/dL (6.4-8.2)
[2020-11-06] MEDS ORDERED: ROPINIROLE HCL0.5 MG PO (15:59)
[2020-11-06] MEDS ORDERED: AMIL5 PO (16:01)
[2020-11-06] MEDS ORDERED: MIDODRINE HCL10 M1 PO (16:01)
[2020-11-06] MEDS ORDERED: XARELTO20 MG PO (16:02)
[2020-11-06] MEDS ORDERED: TOPI100 PO (16:03)
[2020-11-06] MEDS ORDERED: GABA300 PO (16:03)
[2020-11-06] MEDS ORDERED: FLUDROCORTISON0.1 MG PO (16:04)
[2020-11-06] MEDS ORDERED: DIPHEN12.5 MG/1 IM (16:06)
[2020-11-06] MEDS ORDERED: SODBIC650 (16:06)
[2020-11-06] MEDS ORDERED: SPIR25 PO (16:07)
[2020-11-06] MEDS ORDERED: Potassium Chlo20 ME1 PO (16:07)
[2020-11-06] MEDS ORDERED: AMLO5 (16:08)
[2020-11-06] MEDS ORDERED: HYDMOR4 PO (16:09)
[2020-11-06] MEDS ORDERED: TIZA4 PO (16:11)
[2020-11-06] MEDS ORDERED: TRAZ100 PO (16:27)
[2020-11-06] MEDS ORDERED: FOLI1 PO (16:27)
[2020-11-06] MEDS ORDERED: HYDCOR10 PO (16:28)
[2020-11-06] MEDS ORDERED: CONEST.625 PO (16:31)
[2020-11-06] MEDS ORDERED: CYAN1000I IM (16:31)
== END 2020-11-05 15:25 | disposition home or self-care (01) ==
LOC: ER 10:25
PROVIDERS: Emergency Medicine
DX: R42 Dizziness and giddiness (principal); Z79.02 Long term (current) use of antithrombotics/antiplatelets; Z79.899 Other long term (current) drug therapy; Z88.6 Allergy status to analgesic agent; Z88.0 Allergy status to penicillin; Z88.2 Allergy status to sulfonamides; Z88.8 Allergy status to other drugs, medicaments and biological substances; Z86.718 Personal history of other venous thrombosis and embolism; Z95.0 Presence of cardiac pacemaker
CPT/HCPCS: 80047; 80053; 83735; 85014; 85025; 93005; 93010; 96365; 96366; 96375; 99284-25; A9270; J1200; J1642; J3480

== ENCOUNTER 2020-11-06 11:10 | Day surgery (SDC) | payer BC, MEDICARE ==
[2020-11-06 15:59] LABS: PCO2 Arterial 31.8 mmHg (35-45); PO2 Arterial 102 mmHg (80-100); pH Blood Arterial 7.31 (7.35-7.45)
[2020-11-06] MEDS ORDERED: ROPINIROLE HCL0.5 MG PO (15:59)
[2020-11-06] MEDS ORDERED: MIDODRINE HCL10 M1 PO (16:01)
[2020-11-06] MEDS ORDERED: AMIL5 PO (16:01)
[2020-11-06] MEDS ORDERED: XARELTO20 MG PO (16:02)
[2020-11-06] MEDS ORDERED: TOPI100 PO (16:03)
[2020-11-06] MEDS ORDERED: GABA300 PO (16:03)
[2020-11-06] MEDS ORDERED: FLUDROCORTISON0.1 MG PO (16:04)
[2020-11-06] MEDS ORDERED: DIPHEN12.5 MG/1 IM (16:06)
[2020-11-06] MEDS ORDERED: SODBIC650 (16:06)
[2020-11-06] MEDS ORDERED: SPIR25 PO (16:07)
[2020-11-06] MEDS ORDERED: Potassium Chlo20 ME1 PO (16:07)
[2020-11-06] MEDS ORDERED: AMLO5 (16:08)
[2020-11-06] MEDS ORDERED: HYDMOR4 PO (16:09)
[2020-11-06] MEDS ORDERED: TIZA4 PO (16:11)
[2020-11-06 16:15] LABS: Albumin, Blood 3.2 g/dL (3.4-5.0); Anion Gap 7 mmol/L (6-16); Blood Urea Nitrogen 14 mg/dL (8-24); Bun/Creatinine Ratio 17.1 (12.0-20.0); CO2, Blood 18 mmol/L (21-32); Calcium, Blood 8.1 mg/dL (8.5-10.1); Chloride, Blood 119 mmol/L (98-108); Creatinine, Blood 0.82 mg/dL (0.40-1.00); Glomerular Filtration Rate >60 (60-); Glucose, Blood 115 mg/dL (70-99); Phosphorus, Blood 1.7 mg/dL (2.5-4.9); Potassium, Blood 3.7 mmol/L (3.5-5.5); Sodium, Blood 144 mmol/L (136-145)
[2020-11-06] MEDS ORDERED: TRAZ100 PO (16:27)
[2020-11-06] MEDS ORDERED: FOLI1 PO (16:27)
[2020-11-06] MEDS ORDERED: HYDCOR10 PO (16:28)
[2020-11-06] MEDS ORDERED: CYAN1000I IM (16:31)
[2020-11-06] MEDS ORDERED: CONEST.625 PO (16:31)
== END 2020-11-06 17:37 | disposition home or self-care (01) ==
LOC: ATC 11:10
PROVIDERS: Internal Medicine Nephrology
DX: E87.6 Hypokalemia (principal); I12.9 Hypertensive chronic kidney disease with stage 1 through stage 4 chronic kidney disease, or unspecified chronic kidney disease; N18.2 Chronic kidney disease, stage 2 (mild); Z88.0 Allergy status to penicillin; Z88.2 Allergy status to sulfonamides; Z88.8 Allergy status to other drugs, medicaments and biological substances; Z95.0 Presence of cardiac pacemaker
CPT/HCPCS: 36600; 80069; 82803; 83735; 85018; 96365; 96366; 96375; J1200; J1642; J3480

== ENCOUNTER 2020-11-28 07:41 | Day surgery (SDC) | payer BC, MEDICARE ==
[~2020-11-28 07:41] MED LIST changes: +AMLO5; +DIPHEN12.5 MG/1 IM; +FLUDROCORTISON0.1 MG PO; +GABA300 PO; +HYDCOR10 PO; +MIDODRINE HCL10 M1 PO; +ROPINIROLE HCL0.5 MG PO; +SODBIC650
== END 2020-11-28 13:02 | disposition home or self-care (01) ==
LOC: ATC 07:41
DX: E83.30 Disorder of phosphorus metabolism, unspecified (principal); I12.9 Hypertensive chronic kidney disease with stage 1 through stage 4 chronic kidney disease, or unspecified chronic kidney disease; N18.9 Chronic kidney disease, unspecified; N18.2 Chronic kidney disease, stage 2 (mild); D63.1 Anemia in chronic kidney disease; D50.9 Iron deficiency anemia, unspecified; Z88.0 Allergy status to penicillin; Z88.2 Allergy status to sulfonamides; Z79.01 Long term (current) use of anticoagulants
CPT/HCPCS: 96365; 96366; 96375; J1200; J1642; J7060

== ENCOUNTER → 2021-06-17 | Outpatient (CLI) | payer BC, MEDICARE | LOC: LAB 15:00 → LAB SHORT 15:00 | DX: N39.0 Urinary tract infection, site not specified (principal) | CPT/HCPCS: 87077; 87086; 87186 ==

== ENCOUNTER → 2021-09-20 | Outpatient (CLI) | payer BC, MEDICARE ==
[2021-09-20 13:03] LABS: BASOPHILS ABSOLUTE AUTO 0.07 K/mm3 (0.00-0.23); BASOPHILS PERCENT AUTO 1 % (0-2); EOSINOPHILS ABSOLUTE AUTO 0.28 K/mm3 (0.00-0.68); EOSINOPHILS PERCENT AUTO 5 % (0-6); Hematocrit 34.8 % (33.0-51.0); Hemoglobin 10.5 g/dL (11.5-16.0); IMMATURE GRAN ABSOLUTE AUTO 0.02 K/mm3 (0.00-0.10); IMMATURE GRAN PERCENT AUTO 0 % (0-1); LYMPHOCYTES ABSOLUTE AUTO 1.49 K/mm3 (0.84-5.20); LYMPHOCYTES PERCENT AUTO 29 % (21-46); MONOCYTES ABSOLUTE AUTO 0.35 K/mm3 (0.16-1.47); MONOCYTES PERCENT AUTO 7 % (4-13); Mean Corpuscular HGB 28.8 pg (26.0-34.0); Mean Corpuscular HGB Conc 30.2 g/dL (31.5-36.5); Mean Corpuscular Volume 96 fL (80-100); Mean Platelet Volume 9.9 fL (9.1-12.4); NEUTROPHILS ABSOLUTE AUTO 2.96 K/mm3 (1.96-9.15); NEUTROPHILS PERCENT AUTO 57 % (41-73); Platelet Count 246 K/mm3 (150-400); RDW Coefficient Variation 14.8 % (11.7-14.2); Red Blood Cell Count 3.64 M/mm3 (3.80-5.20); White Blood Cell Count 5.17 K/mm3 (4.00-11.30)
[2021-09-20 13:16] LABS: Magnesium, Blood 1.9 mg/dL (1.6-2.4)
[2021-09-20 13:17] LABS: Alanine Aminotransfer (ALT/SGP 49 U/L (12-78); Albumin, Blood 2.6 g/dL (3.4-5.0); Albumin/Globulin Ratio 0.5 (0.8-1.8); Alk Phos 277 U/L (50-136); Anion Gap 6 mmol/L (6-16); Aspartate Aminotrans (AST/SGOT 28 U/L (12-37); Bilirubin, Total 0.3 mg/dL (0.1-1.0); Blood Urea Nitrogen 8 mg/dL (8-24); CO2, Blood 26 mmol/L (21-32); Calcium, Blood 8.3 mg/dL (8.5-10.1); Chloride, Blood 106 mmol/L (98-108); Globulin, Blood 5.1 g/dL (2.2-4.0); Glomerular Filtration Rate >60 (60-); Glucose, Blood 119 mg/dL (70-99); Phosphorus, Blood 3.8 mg/dL (2.5-4.9); Potassium, Blood 3.7 mmol/L (3.5-5.5); Sodium, Blood 138 mmol/L (136-145); Total Protein, Blood 7.7 g/dL (6.4-8.2); Triglycerides 78 mg/dL (30-160)
== END | disposition home or self-care (01) ==
LOC: LAB SHORT 11:45
PROVIDERS: Internal Medicine Nephrology
DX: G71.00 Muscular dystrophy, unspecified (principal); L89.92 Pressure ulcer of unspecified site, stage 2; I12.9 Hypertensive chronic kidney disease with stage 1 through stage 4 chronic kidney disease, or unspecified chronic kidney disease; N18.2 Chronic kidney disease, stage 2 (mild); D63.1 Anemia in chronic kidney disease; E86.9 Volume depletion, unspecified
CPT/HCPCS: 80053; 83735; 84100; 84478; 85025

== ENCOUNTER → 2021-09-27 | Outpatient (CLI) | payer BC, MEDICARE ==
[2021-09-27 10:30] LABS: BASOPHILS ABSOLUTE AUTO 0.03 K/mm3 (0.00-0.23); BASOPHILS PERCENT AUTO 1 % (0-2); EOSINOPHILS ABSOLUTE AUTO 0.18 K/mm3 (0.00-0.68); EOSINOPHILS PERCENT AUTO 5 % (0-6); Hemoglobin 8.8 g/dL (11.5-16.0); IMMATURE GRAN ABSOLUTE AUTO 0.01 K/mm3 (0.00-0.10); IMMATURE GRAN PERCENT AUTO 0 % (0-1); LYMPHOCYTES ABSOLUTE AUTO 0.58 K/mm3 (0.84-5.20); LYMPHOCYTES PERCENT AUTO 16 % (21-46); MONOCYTES ABSOLUTE AUTO 0.25 K/mm3 (0.16-1.47); MONOCYTES PERCENT AUTO 7 % (4-13); Mean Corpuscular HGB 29.8 pg (26.0-34.0); Mean Corpuscular HGB Conc 31.4 g/dL (31.5-36.5); Mean Corpuscular Volume 95 fL (80-100); Mean Platelet Volume 9.8 fL (9.1-12.4); NEUTROPHILS PERCENT AUTO 71 % (41-73); Platelet Count 137 K/mm3 (150-400); RDW Coefficient Variation 15.1 % (11.7-14.2); RDW Standard Deviation 52.3 fL (35.1-46.3); Red Blood Cell Count 2.95 M/mm3 (3.80-5.20); White Blood Cell Count 3.65 K/mm3 (4.00-11.30)
[2021-09-27 10:46] LABS: Alanine Aminotransfer (ALT/SGP 55 U/L (12-78); Albumin, Blood 2.1 g/dL (3.4-5.0); Albumin/Globulin Ratio 0.5 (0.8-1.8); Alk Phos 171 U/L (50-136); Anion Gap 5 mmol/L (6-16); Aspartate Aminotrans (AST/SGOT 39 U/L (12-37); Bilirubin, Total 0.3 mg/dL (0.1-1.0); Blood Urea Nitrogen 16 mg/dL (8-24); Bun/Creatinine Ratio 19.9 (12.0-20.0); CO2, Blood 26 mmol/L (21-32); Chloride, Blood 107 mmol/L (98-108); Creatinine, Blood 0.81 mg/dL (0.40-1.00); Globulin, Blood 4.2 g/dL (2.2-4.0); Glomerular Filtration Rate >60 (60-); Glucose, Blood 99 mg/dL (70-99); Magnesium, Blood 1.9 mg/dL (1.6-2.4); Phosphorus, Blood 3.7 mg/dL (2.5-4.9); Potassium, Blood 3.9 mmol/L (3.5-5.5); Sodium, Blood 138 mmol/L (136-145); Total Protein, Blood 6.3 g/dL (6.4-8.2); Triglycerides 75 mg/dL (30-160)
== END | disposition home or self-care (01) ==
LOC: LAB SHORT 09:30
PROVIDERS: Internal Medicine Nephrology
DX: I12.9 Hypertensive chronic kidney disease with stage 1 through stage 4 chronic kidney disease, or unspecified chronic kidney disease (principal); N18.2 Chronic kidney disease, stage 2 (mild); D63.1 Anemia in chronic kidney disease; N25.81 Secondary hyperparathyroidism of renal origin; G71.00 Muscular dystrophy, unspecified; L89.92 Pressure ulcer of unspecified site, stage 2; E83.30 Disorder of phosphorus metabolism, unspecified; R63.0 Anorexia
CPT/HCPCS: 80053; 83735; 84100; 84478; 85025

== ENCOUNTER 2021-09-30 14:20 | Emergency (ER) | payer BC, MEDICARE ==
[~2021-09-30] VITALS: Ht 170.2 cm; Wt 54.4 kg
[2021-09-30 15:00] LABS: BASOPHILS ABSOLUTE AUTO 0.02 K/mm3 (0.00-0.23); BASOPHILS PERCENT AUTO 1 % (0-2); EOSINOPHILS ABSOLUTE AUTO 0.04 K/mm3 (0.00-0.68); EOSINOPHILS PERCENT AUTO 1 % (0-6); Hematocrit 30.3 % (33.0-51.0); Hemoglobin 9.3 g/dL (11.5-16.0); IMMATURE GRAN ABSOLUTE AUTO 0.02 K/mm3 (0.00-0.10); IMMATURE GRAN PERCENT AUTO 1 % (0-1); LYMPHOCYTES ABSOLUTE AUTO 0.24 K/mm3 (0.84-5.20); LYMPHOCYTES PERCENT AUTO 6 % (21-46); MONOCYTES ABSOLUTE AUTO 0.28 K/mm3 (0.16-1.47); MONOCYTES PERCENT AUTO 7 % (4-13); Mean Corpuscular HGB 29.2 pg (26.0-34.0); Mean Corpuscular HGB Conc 30.7 g/dL (31.5-36.5); Mean Corpuscular Volume 95 fL (80-100); Mean Platelet Volume 10.3 fL (9.1-12.4); NEUTROPHILS ABSOLUTE AUTO 3.67 K/mm3 (1.96-9.15); NEUTROPHILS PERCENT AUTO 86 % (41-73); Platelet Count 140 K/mm3 (150-400); RDW Coefficient Variation 15.3 % (11.7-14.2); RDW Standard Deviation 53.3 fL (35.1-46.3); Red Blood Cell Count 3.19 M/mm3 (3.80-5.20); White Blood Cell Count 4.27 K/mm3 (4.00-11.30)
[2021-09-30 15:17] LABS: Alanine Aminotransfer (ALT/SGP 78 U/L (12-78); Albumin, Blood 2.2 g/dL (3.4-5.0); Albumin/Globulin Ratio 0.5 (0.8-1.8); Alk Phos 232 U/L (50-136); Anion Gap 6 mmol/L (6-16); Aspartate Aminotrans (AST/SGOT 49 U/L (12-37); Bilirubin, Total 0.5 mg/dL (0.1-1.0); Blood Urea Nitrogen 20 mg/dL (8-24); Bun/Creatinine Ratio 22.1 (12.0-20.0); CO2, Blood 21 mmol/L (21-32); Calcium, Blood 8.3 mg/dL (8.5-10.1); Chloride, Blood 110 mmol/L (98-108); Creatinine, Blood 0.91 mg/dL (0.40-1.00); Globulin, Blood 4.6 g/dL (2.2-4.0); Glomerular Filtration Rate >60 (60-); Glucose, Blood 124 mg/dL (70-99); Potassium, Blood 3.5 mmol/L (3.5-5.5); Sodium, Blood 137 mmol/L (136-145); Total Protein, Blood 6.8 g/dL (6.4-8.2)
== END 2021-09-30 16:33 | disposition home or self-care (01) ==
LOC: ER 14:20
PROVIDERS: Physician Assistant
DX: T82.594A Other mechanical complication of infusion catheter, initial encounter (principal); L89.159 Pressure ulcer of sacral region, unspecified stage; R50.9 Fever, unspecified; G43.909 Migraine, unspecified, not intractable, without status migrainosus; Z88.0 Allergy status to penicillin; Z88.2 Allergy status to sulfonamides; Z88.5 Allergy status to narcotic agent; Z88.8 Allergy status to other drugs, medicaments and biological substances; Z88.6 Allergy status to analgesic agent; Z86.718 Personal history of other venous thrombosis and embolism; Z79.899 Other long term (current) drug therapy
CPT/HCPCS: 36415; 80053; 83605; 85025; 93005; 93010; J1642; J1885

== ENCOUNTER → 2021-09-30 | Outpatient (CLI) | payer BC, MEDICARE ==
[2021-09-30 20:15] LABS: Hematocrit 30.6 % (33.0-51.0); Hemoglobin 9.4 g/dL (11.5-16.0); Mean Corpuscular HGB 29.2 pg (26.0-34.0); Mean Corpuscular HGB Conc 30.7 g/dL (31.5-36.5); Mean Corpuscular Volume 95 fL (80-100); Mean Platelet Volume 10.7 fL (9.1-12.4); Platelet Count 143 K/mm3 (150-400); RDW Coefficient Variation 15.2 % (11.7-14.2); RDW Standard Deviation 53.3 fL (35.1-46.3); Red Blood Cell Count 3.22 M/mm3 (3.80-5.20); White Blood Cell Count 2.13 K/mm3 (4.00-11.30)
[2021-09-30 20:39] LABS: BAND PERCENT MAN 15 % (0-8); BASOPHILS ABSOLUTE MAN 0.02 K/mm3 (0.00-0.23); BASOPHILS PERCENT MAN 1 % (0-2); EOSINOPHILS PERCENT MAN 0 % (0-6); LYMPHOCYTES ABSOLUTE MAN 0.08 K/mm3 (0.84-5.20); LYMPHOCYTES PERCENT MAN 4 % (21-46); METAMYELOCYTE ABSOLUTE MAN 0.02 K/mm3 (0.00-0.00); METAMYELOCYTE PERCENT MAN 1 % (0-0); MONOCYTES ABSOLUTE MAN 0.04 K/mm3 (0.16-1.47); MONOCYTES PERCENT MAN 2 % (4-13); NEUTROPHILS ABSOLUTE MAN 1.95 K/mm3 (1.96-9.15); SEG NEUTROPHILS PERCENT MAN 77 % (41-73); TOTAL CELLS COUNTED 100
[2021-09-30 20:52] LABS: Alanine Aminotransfer (ALT/SGP 81 U/L (12-78); Albumin, Blood 2.4 g/dL (3.4-5.0); Albumin/Globulin Ratio 0.5 (0.8-1.8); Alk Phos 276 U/L (50-136); Anion Gap 10 mmol/L (6-16); Aspartate Aminotrans (AST/SGOT 55 U/L (12-37); Bilirubin, Direct 0.5 mg/dL (0.0-0.3); Bilirubin, Indirect 0.3 mg/dL (0.1-0.7); Bilirubin, Total 0.8 mg/dL (0.1-1.0); Blood Urea Nitrogen 21 mg/dL (8-24); CO2, Blood 17 mmol/L (21-32); Calcium, Blood 7.9 mg/dL (8.5-10.1); Chloride, Blood 110 mmol/L (98-108); Globulin, Blood 4.4 g/dL (2.2-4.0); Glucose, Blood 113 mg/dL (70-99); Magnesium, Blood 1.7 mg/dL (1.6-2.4); Phosphorus, Blood 2.7 mg/dL (2.5-4.9); Potassium, Blood 3.4 mmol/L (3.5-5.5); Prealbumin, Blood 7.5 mg/dL (20.0-40.0); Sodium, Blood 137 mmol/L (136-145); Total Protein, Blood 6.8 g/dL (6.4-8.2); Triglycerides 119 mg/dL (30-160)
[2021-09-30 20:56] LABS: Bun/Creatinine Ratio 22.5 (12.0-20.0); Creatinine, Blood 0.94 mg/dL (0.40-1.00); Glomerular Filtration Rate >60 (60-)
== END | disposition home or self-care (01) ==
LOC: LAB SHORT 18:01
PROVIDERS: Internal Medicine Nephrology
DX: I12.9 Hypertensive chronic kidney disease with stage 1 through stage 4 chronic kidney disease, or unspecified chronic kidney disease (principal); N18.2 Chronic kidney disease, stage 2 (mild); D63.1 Anemia in chronic kidney disease; E27.1 Primary adrenocortical insufficiency; E46 Unspecified protein-calorie malnutrition; N25.81 Secondary hyperparathyroidism of renal origin; E86.9 Volume depletion, unspecified
CPT/HCPCS: 80053; 82247; 82248; 83735; 84100; 84134; 84478; 85025

== ENCOUNTER → 2021-10-07 | Outpatient (CLI) | payer BC, MEDICARE ==
[2021-10-07 15:02] LABS: BASOPHILS ABSOLUTE AUTO 0.03 K/mm3 (0.00-0.23); BASOPHILS PERCENT AUTO 0 % (0-2); EOSINOPHILS PERCENT AUTO 2 % (0-6); Hematocrit 24.7 % (33.0-51.0); Hemoglobin 7.4 g/dL (11.5-16.0); IMMATURE GRAN ABSOLUTE AUTO 0.07 K/mm3 (0.00-0.10); IMMATURE GRAN PERCENT AUTO 1 % (0-1); LYMPHOCYTES ABSOLUTE AUTO 0.69 K/mm3 (0.84-5.20); LYMPHOCYTES PERCENT AUTO 10 % (21-46); MONOCYTES ABSOLUTE AUTO 0.27 K/mm3 (0.16-1.47); MONOCYTES PERCENT AUTO 4 % (4-13); Mean Corpuscular HGB 28.4 pg (26.0-34.0); Mean Corpuscular Volume 95 fL (80-100); Mean Platelet Volume 11.7 fL (9.1-12.4); NEUTROPHILS ABSOLUTE AUTO 5.58 K/mm3 (1.96-9.15); NEUTROPHILS PERCENT AUTO 83 % (41-73); Platelet Count 204 K/mm3 (150-400); RDW Standard Deviation 54.6 fL (35.1-46.3); Red Blood Cell Count 2.61 M/mm3 (3.80-5.20); White Blood Cell Count 6.74 K/mm3 (4.00-11.30)
[2021-10-07 15:29] LABS: Alanine Aminotransfer (ALT/SGP 71 U/L (12-78); Albumin, Blood 1.8 g/dL (3.4-5.0); Albumin/Globulin Ratio 0.4 (0.8-1.8); Alk Phos 147 U/L (50-136); Anion Gap 6 mmol/L (6-16); Aspartate Aminotrans (AST/SGOT 54 U/L (12-37); Bilirubin, Total 0.5 mg/dL (0.1-1.0); Blood Urea Nitrogen 23 mg/dL (8-24); CO2, Blood 19 mmol/L (21-32); Calcium, Blood 7.2 mg/dL (8.5-10.1); Chloride, Blood 112 mmol/L (98-108); Creatinine, Blood 0.77 mg/dL (0.40-1.00); Globulin, Blood 4.1 g/dL (2.2-4.0); Glomerular Filtration Rate >60 (60-); Glucose, Blood 104 mg/dL (70-99); Magnesium, Blood 1.9 mg/dL (1.6-2.4); Phosphorus, Blood 2.9 mg/dL (2.5-4.9); Potassium, Blood 3.8 mmol/L (3.5-5.5); Sodium, Blood 137 mmol/L (136-145); Total Protein, Blood 5.9 g/dL (6.4-8.2); Triglycerides 76 mg/dL (30-160)
== END | disposition home or self-care (01) ==
LOC: LAB 13:45 → LAB SHORT 13:45
PROVIDERS: Internal Medicine Nephrology
DX: I12.9 Hypertensive chronic kidney disease with stage 1 through stage 4 chronic kidney disease, or unspecified chronic kidney disease (principal); N18.2 Chronic kidney disease, stage 2 (mild); D63.1 Anemia in chronic kidney disease; E27.1 Primary adrenocortical insufficiency; G71.00 Muscular dystrophy, unspecified; D50.9 Iron deficiency anemia, unspecified; E87.6 Hypokalemia
CPT/HCPCS: 80053; 83735; 84100; 84478; 85025

== ENCOUNTER → 2021-11-10 | Outpatient (CLI) | payer BC, MEDICARE ==
[2021-11-10 19:32] LABS: BASOPHILS ABSOLUTE AUTO 0.08 K/mm3 (0.00-0.23); BASOPHILS PERCENT AUTO 2 % (0-2); EOSINOPHILS ABSOLUTE AUTO 0.25 K/mm3 (0.00-0.68); EOSINOPHILS PERCENT AUTO 5 % (0-6); Hematocrit 32.8 % (33.0-51.0); Hemoglobin 9.7 g/dL (11.5-16.0); IMMATURE GRAN ABSOLUTE AUTO 0.02 K/mm3 (0.00-0.10); IMMATURE GRAN PERCENT AUTO 0 % (0-1); LYMPHOCYTES ABSOLUTE AUTO 1.02 K/mm3 (0.84-5.20); LYMPHOCYTES PERCENT AUTO 21 % (21-46); MONOCYTES ABSOLUTE AUTO 0.32 K/mm3 (0.16-1.47); MONOCYTES PERCENT AUTO 7 % (4-13); Mean Corpuscular HGB Conc 29.6 g/dL (31.5-36.5); Mean Corpuscular Volume 98 fL (80-100); Mean Platelet Volume 9.8 fL (9.1-12.4); NEUTROPHILS ABSOLUTE AUTO 3.07 K/mm3 (1.96-9.15); NEUTROPHILS PERCENT AUTO 65 % (41-73); Platelet Count 342 K/mm3 (150-400); RDW Coefficient Variation 15.8 % (11.7-14.2); RDW Standard Deviation 56.8 fL (35.1-46.3); Red Blood Cell Count 3.35 M/mm3 (3.80-5.20); White Blood Cell Count 4.76 K/mm3 (4.00-11.30)
[2021-11-10 22:14] LABS: Alanine Aminotransfer (ALT/SGP 39 U/L (12-78); Albumin, Blood 2.7 g/dL (3.4-5.0); Albumin/Globulin Ratio 0.5 (0.8-1.8); Alk Phos 247 U/L (50-136); Anion Gap 4 mmol/L (6-16); Aspartate Aminotrans (AST/SGOT 36 U/L (12-37); Bilirubin, Total 0.3 mg/dL (0.1-1.0); Blood Urea Nitrogen 8 mg/dL (8-24); Bun/Creatinine Ratio 10.7 (12.0-20.0); CO2, Blood 26 mmol/L (21-32); Calcium, Blood 8.6 mg/dL (8.5-10.1); Chloride, Blood 109 mmol/L (98-108); Creatinine, Blood 0.75 mg/dL (0.40-1.00); Globulin, Blood 5.2 g/dL (2.2-4.0); Glomerular Filtration Rate >60 (60-); Glucose, Blood 111 mg/dL (70-99); Potassium, Blood 3.7 mmol/L (3.5-5.5); Sodium, Blood 139 mmol/L (136-145); Total Protein, Blood 7.9 g/dL (6.4-8.2)
== END | disposition home or self-care (01) ==
LOC: LAB HH 11:15
PROVIDERS: Internal Medicine Nephrology
DX: A41.9 Sepsis, unspecified organism (principal); L89.150 Pressure ulcer of sacral region, unstageable; E77.1 Defects in glycoprotein degradation
CPT/HCPCS: 80053; 83735; 85025

== ENCOUNTER → 2021-11-17 | Outpatient (CLI) | payer BC, MEDICARE ==
[2021-11-17 19:33] LABS: BASOPHILS ABSOLUTE AUTO 0.07 K/mm3 (0.00-0.23); BASOPHILS PERCENT AUTO 2 % (0-2); EOSINOPHILS ABSOLUTE AUTO 0.32 K/mm3 (0.00-0.68); EOSINOPHILS PERCENT AUTO 7 % (0-6); Hematocrit 33.7 % (33.0-51.0); IMMATURE GRAN ABSOLUTE AUTO 0.01 K/mm3 (0.00-0.10); IMMATURE GRAN PERCENT AUTO 0 % (0-1); LYMPHOCYTES ABSOLUTE AUTO 1.15 K/mm3 (0.84-5.20); LYMPHOCYTES PERCENT AUTO 26 % (21-46); MONOCYTES ABSOLUTE AUTO 0.31 K/mm3 (0.16-1.47); MONOCYTES PERCENT AUTO 7 % (4-13); Mean Corpuscular HGB 28.7 pg (26.0-34.0); Mean Corpuscular HGB Conc 29.7 g/dL (31.5-36.5); Mean Corpuscular Volume 97 fL (80-100); NEUTROPHILS ABSOLUTE AUTO 2.51 K/mm3 (1.96-9.15); NEUTROPHILS PERCENT AUTO 58 % (41-73); Platelet Count 257 K/mm3 (150-400); RDW Standard Deviation 53.1 fL (35.1-46.3); Red Blood Cell Count 3.48 M/mm3 (3.80-5.20); White Blood Cell Count 4.37 K/mm3 (4.00-11.30)
== END ==
LOC: LAB 18:57 → LAB SHORT 18:57
PROVIDERS: Internal Medicine Nephrology
DX: A41.01 Sepsis due to Methicillin susceptible Staphylococcus aureus (principal); B95.2 Enterococcus as the cause of diseases classified elsewhere; B96.89 Other specified bacterial agents as the cause of diseases classified elsewhere; N18.9 Chronic kidney disease, unspecified; D63.1 Anemia in chronic kidney disease
CPT/HCPCS: 85025

== ENCOUNTER → 2021-11-24 | Outpatient (CLI) | payer BC, MEDICARE ==
[2021-11-24 19:54] LABS: BASOPHILS ABSOLUTE AUTO 0.07 K/mm3 (0.00-0.23); BASOPHILS PERCENT AUTO 2 % (0-2); EOSINOPHILS ABSOLUTE AUTO 0.36 K/mm3 (0.00-0.68); EOSINOPHILS PERCENT AUTO 8 % (0-6); Hematocrit 34.3 % (33.0-51.0); Hemoglobin 10.5 g/dL (11.5-16.0); IMMATURE GRAN ABSOLUTE AUTO 0.01 K/mm3 (0.00-0.10); IMMATURE GRAN PERCENT AUTO 0 % (0-1); LYMPHOCYTES ABSOLUTE AUTO 1.09 K/mm3 (0.84-5.20); LYMPHOCYTES PERCENT AUTO 24 % (21-46); MONOCYTES PERCENT AUTO 7 % (4-13); Mean Corpuscular HGB 29.2 pg (26.0-34.0); Mean Corpuscular HGB Conc 30.6 g/dL (31.5-36.5); Mean Corpuscular Volume 95 fL (80-100); Mean Platelet Volume 9.8 fL (9.1-12.4); NEUTROPHILS ABSOLUTE AUTO 2.66 K/mm3 (1.96-9.15); NEUTROPHILS PERCENT AUTO 59 % (41-73); Platelet Count 215 K/mm3 (150-400); RDW Coefficient Variation 14.5 % (11.7-14.2); RDW Standard Deviation 50.9 fL (35.1-46.3); White Blood Cell Count 4.49 K/mm3 (4.00-11.30)
[2021-11-24 20:04] LABS: Alanine Aminotransfer (ALT/SGP 68 U/L (12-78); Albumin, Blood 3.2 g/dL (3.4-5.0); Albumin/Globulin Ratio 0.6 (0.8-1.8); Alk Phos 335 U/L (50-136); Anion Gap 6 mmol/L (6-16); Aspartate Aminotrans (AST/SGOT 59 U/L (12-37); Bilirubin, Total 0.2 mg/dL (0.1-1.0); Blood Urea Nitrogen 16 mg/dL (8-24); Bun/Creatinine Ratio 24.1 (12.0-20.0); CO2, Blood 24 mmol/L (21-32); Calcium, Blood 8.8 mg/dL (8.5-10.1); Chloride, Blood 108 mmol/L (98-108); Creatinine, Blood 0.66 mg/dL (0.40-1.00); Globulin, Blood 5.1 g/dL (2.2-4.0); Glomerular Filtration Rate >60 (60-); Glucose, Blood 104 mg/dL (70-99); Sodium, Blood 138 mmol/L (136-145); Total Protein, Blood 8.3 g/dL (6.4-8.2)
== END ==
LOC: LAB SHORT 14:15
PROVIDERS: Internal Medicine Infectious Disease
DX: A41.01 Sepsis due to Methicillin susceptible Staphylococcus aureus (principal); B95.2 Enterococcus as the cause of diseases classified elsewhere; B96.89 Other specified bacterial agents as the cause of diseases classified elsewhere; L89.150 Pressure ulcer of sacral region, unstageable; E27.1 Primary adrenocortical insufficiency; F12.90 Cannabis use, unspecified, uncomplicated
CPT/HCPCS: 80053; 85025

== ENCOUNTER → 2021-12-14 | Outpatient (CLI) | payer BC, MEDICARE | END | disposition home or self-care (01) | LOC: LAB SHORT 12:00 → LAB 12:00 | DX: N39.0 Urinary tract infection, site not specified (principal) | CPT/HCPCS: 87077; 87086; 87186 ==

== ENCOUNTER 2022-01-20 10:59 | Day surgery (SDC) | payer BC, MEDICARE ==
[~2022-01-20] VITALS: Ht 170.2 cm; Wt 59.5 kg
[2022-01-20 11:49] LABS: BASOPHILS ABSOLUTE AUTO 0.03 K/mm3 (0.00-0.23); BASOPHILS PERCENT AUTO 1 % (0-2); EOSINOPHILS ABSOLUTE AUTO 0.22 K/mm3 (0.00-0.68); EOSINOPHILS PERCENT AUTO 4 % (0-6); Hematocrit 31.3 % (33.0-51.0); Hemoglobin 9.7 g/dL (11.5-16.0); IMMATURE GRAN ABSOLUTE AUTO 0.01 K/mm3 (0.00-0.10); IMMATURE GRAN PERCENT AUTO 0 % (0-1); LYMPHOCYTES ABSOLUTE AUTO 1.28 K/mm3 (0.84-5.20); LYMPHOCYTES PERCENT AUTO 22 % (21-46); MONOCYTES ABSOLUTE AUTO 0.45 K/mm3 (0.16-1.47); MONOCYTES PERCENT AUTO 8 % (4-13); Mean Corpuscular HGB 28.8 pg (26.0-34.0); Mean Corpuscular Volume 93 fL (80-100); Mean Platelet Volume 8.7 fL (9.1-12.4); NEUTROPHILS ABSOLUTE AUTO 3.72 K/mm3 (1.96-9.15); NEUTROPHILS PERCENT AUTO 65 % (41-73); Platelet Count 272 K/mm3 (150-400); RDW Coefficient Variation 14.5 % (11.7-14.2); RDW Standard Deviation 49.1 fL (35.1-46.3); Red Blood Cell Count 3.37 M/mm3 (3.80-5.20); White Blood Cell Count 5.71 K/mm3 (4.00-11.30)
[2022-01-20 12:11] LABS: Anion Gap 4 mmol/L (6-16); Blood Urea Nitrogen 14 mg/dL (8-24); Bun/Creatinine Ratio 17.9 (12.0-20.0); CO2, Blood 24 mmol/L (21-32); Calcium, Blood 8.3 mg/dL (8.5-10.1); Chloride, Blood 110 mmol/L (98-108); Creatinine, Blood 0.78 mg/dL (0.40-1.00); Glomerular Filtration Rate >60 (60-); Glucose, Blood 100 mg/dL (70-99); Potassium, Blood 3.6 mmol/L (3.5-5.5); Sodium, Blood 138 mmol/L (136-145)
--- NOTE | 2022-01-20 14:33 | NUR ---
PT WAKING UP AND TALKING WITH STAFF. PT WANTING TO GO HOME, PRESENT. SALINE LOCK REMOVED WITH CATHETER INTACT. DISCHARGE INSTRUCTIONS REVIEWED WITH PT, VERBALIZES UNDERSTANDING OF INSTRUCTIONS. PT TO PRIVATE VEHICLE PER W/C.
== END 2022-01-20 14:30 | disposition home or self-care (01) ==
LOC: MHTC 10:59
PROVIDERS: Radiology Diagnostic Radiology
DX: Z45.2 Encounter for adjustment and management of vascular access device (principal); G71.00 Muscular dystrophy, unspecified; Z88.0 Allergy status to penicillin; Z88.5 Allergy status to narcotic agent; Z88.8 Allergy status to other drugs, medicaments and biological substances
CPT/HCPCS: 36415; 76937; 80048; 85025; 99152; 99153; C1788; C1894; J0690; J1200; J1642; J1644; J2250; J7030; J7050

== ENCOUNTER 2022-02-19 00:51 | Day surgery (SDC) | payer BC, MEDICARE ==
[2022-02-19 18:08] LABS: BASOPHILS ABSOLUTE AUTO 0.04 K/mm3 (0.00-0.23); BASOPHILS PERCENT AUTO 1 % (0-2); EOSINOPHILS ABSOLUTE AUTO 0.33 K/mm3 (0.00-0.68); EOSINOPHILS PERCENT AUTO 8 % (0-6); Hematocrit 34.5 % (33.0-51.0); Hemoglobin 10.4 g/dL (11.5-16.0); IMMATURE GRAN ABSOLUTE AUTO 0.01 K/mm3 (0.00-0.10); IMMATURE GRAN PERCENT AUTO 0 % (0-1); LYMPHOCYTES ABSOLUTE AUTO 1.43 K/mm3 (0.84-5.20); LYMPHOCYTES PERCENT AUTO 36 % (21-46); MONOCYTES ABSOLUTE AUTO 0.22 K/mm3 (0.16-1.47); MONOCYTES PERCENT AUTO 6 % (4-13); Mean Corpuscular HGB Conc 30.1 g/dL (31.5-36.5); Mean Corpuscular Volume 93 fL (80-100); Mean Platelet Volume 9.5 fL (9.1-12.4); NEUTROPHILS ABSOLUTE AUTO 1.92 K/mm3 (1.96-9.15); NEUTROPHILS PERCENT AUTO 49 % (41-73); Platelet Count 206 K/mm3 (150-400); RDW Coefficient Variation 14.2 % (11.7-14.2); Red Blood Cell Count 3.71 M/mm3 (3.80-5.20); White Blood Cell Count 3.95 K/mm3 (4.00-11.30)
[2022-02-19 18:32] LABS: Alanine Aminotransfer (ALT/SGP 77 U/L (12-78); Albumin, Blood 3.2 g/dL (3.4-5.0); Albumin/Globulin Ratio 0.7 (0.8-1.8); Alk Phos 321 U/L (50-136); Anion Gap 3 mmol/L (6-16); Aspartate Aminotrans (AST/SGOT 28 U/L (12-37); Bilirubin, Direct 0.1 mg/dL (0.0-0.3); Bilirubin, Indirect 0.1 mg/dL (0.1-0.7); Bilirubin, Total 0.2 mg/dL (0.1-1.0); Blood Urea Nitrogen 10 mg/dL (8-24); Bun/Creatinine Ratio 13.3 (12.0-20.0); CHOL/HDL RATIO 4.4; CO2, Blood 25 mmol/L (21-32); Calcium, Blood 8.3 mg/dL (8.5-10.1); Chloride, Blood 110 mmol/L (98-108); Cholesterol 129 mg/dL (50-200); Creatinine, Blood 0.75 mg/dL (0.40-1.00); Globulin, Blood 4.9 g/dL (2.2-4.0); Glomerular Filtration Rate 98 (60-); Glucose, Blood 113 mg/dL (70-99); HDL Cholesterol 29 mg/dL (>39); LDL/HDL RATIO 2.7; Low Density Lipoprotein Chol 77 mg/dL (0-110); Phosphorus, Blood 3.1 mg/dL (2.5-4.9); Potassium, Blood 3.6 mmol/L (3.5-5.5); Sodium, Blood 138 mmol/L (136-145); Total Protein, Blood 8.1 g/dL (6.4-8.2); Triglycerides 114 mg/dL (30-160); Very Low Density Lipoprot Chol 22 mg/dL (6-32)
== END 2022-02-19 16:58 | disposition home or self-care (01) ==
LOC: ATC 00:51
PROVIDERS: Internal Medicine Nephrology
DX: R62.7 Adult failure to thrive (principal); R63.0 Anorexia; Z68.20 Body mass index [BMI] 20.0-20.9, adult; I12.9 Hypertensive chronic kidney disease with stage 1 through stage 4 chronic kidney disease, or unspecified chronic kidney disease; N18.2 Chronic kidney disease, stage 2 (mild); D63.1 Anemia in chronic kidney disease; N25.81 Secondary hyperparathyroidism of renal origin; Z88.0 Allergy status to penicillin; Z88.2 Allergy status to sulfonamides
CPT/HCPCS: 80053; 80061; 82248; 84100; 85025

== ENCOUNTER 2022-02-26 00:55 | Day surgery (SDC) | payer BC, MEDICARE ==
[2022-02-26 11:36] LABS: BASOPHILS ABSOLUTE AUTO 0.03 K/mm3 (0.00-0.23); BASOPHILS PERCENT AUTO 1 % (0-2); EOSINOPHILS ABSOLUTE AUTO 0.12 K/mm3 (0.00-0.68); EOSINOPHILS PERCENT AUTO 3 % (0-6); Hematocrit 35.4 % (33.0-51.0); Hemoglobin 10.5 g/dL (11.5-16.0); IMMATURE GRAN ABSOLUTE AUTO 0.01 K/mm3 (0.00-0.10); IMMATURE GRAN PERCENT AUTO 0 % (0-1); LYMPHOCYTES ABSOLUTE AUTO 1.35 K/mm3 (0.84-5.20); LYMPHOCYTES PERCENT AUTO 32 % (21-46); MONOCYTES ABSOLUTE AUTO 0.31 K/mm3 (0.16-1.47); MONOCYTES PERCENT AUTO 7 % (4-13); Mean Corpuscular HGB 27.5 pg (26.0-34.0); Mean Corpuscular HGB Conc 29.7 g/dL (31.5-36.5); Mean Corpuscular Volume 93 fL (80-100); Mean Platelet Volume 9.1 fL (9.1-12.4); NEUTROPHILS ABSOLUTE AUTO 2.37 K/mm3 (1.96-9.15); NEUTROPHILS PERCENT AUTO 57 % (41-73); Platelet Count 210 K/mm3 (150-400); RDW Coefficient Variation 14.3 % (11.7-14.2); RDW Standard Deviation 48.3 fL (35.1-46.3); Red Blood Cell Count 3.82 M/mm3 (3.80-5.20); White Blood Cell Count 4.19 K/mm3 (4.00-11.30)
[2022-02-26 11:51] LABS: Alanine Aminotransfer (ALT/SGP 164 U/L (12-78); Albumin, Blood 3.3 g/dL (3.4-5.0); Albumin/Globulin Ratio 0.7 (0.8-1.8); Alk Phos 388 U/L (50-136); Anion Gap 6 mmol/L (6-16); Aspartate Aminotrans (AST/SGOT 68 U/L (12-37); Bilirubin, Direct 0.1 mg/dL (0.0-0.3); Bilirubin, Indirect 0.2 mg/dL (0.1-0.7); Bilirubin, Total 0.3 mg/dL (0.1-1.0); Blood Urea Nitrogen 14 mg/dL (8-24); Bun/Creatinine Ratio 17.2 (12.0-20.0); CHOL/HDL RATIO 3.1; CO2, Blood 25 mmol/L (21-32); Calcium, Blood 8.4 mg/dL (8.5-10.1); Chloride, Blood 107 mmol/L (98-108); Cholesterol 121 mg/dL (50-200); Creatinine, Blood 0.82 mg/dL (0.40-1.00); Glomerular Filtration Rate 87 (60-); Glucose, Blood 102 mg/dL (70-99); HDL Cholesterol 39 mg/dL (>39); LDL/HDL RATIO 1.6; Low Density Lipoprotein Chol 62 mg/dL (0-110); Magnesium, Blood 2.1 mg/dL (1.6-2.4); Phosphorus, Blood 4.4 mg/dL (2.5-4.9); Potassium, Blood 3.9 mmol/L (3.5-5.5); Sodium, Blood 138 mmol/L (136-145); Total Protein, Blood 8.3 g/dL (6.4-8.2); Triglycerides 102 mg/dL (30-160); Very Low Density Lipoprot Chol 20 mg/dL (6-32)
== END 2022-02-26 11:33 | disposition home or self-care (01) ==
LOC: ATC 00:55
PROVIDERS: Internal Medicine Nephrology
DX: R62.7 Adult failure to thrive (principal); R63.0 Anorexia; N18.2 Chronic kidney disease, stage 2 (mild); D63.1 Anemia in chronic kidney disease; E83.42 Hypomagnesemia; E78.00 Pure hypercholesterolemia, unspecified; R94.5 Abnormal results of liver function studies
CPT/HCPCS: 80053; 80061; 82248; 83735; 84100; 85025

== ENCOUNTER → 2022-03-08 | Outpatient (CLI) | payer BC, MEDICARE ==
[2022-03-08 12:32] LABS: BASOPHILS ABSOLUTE AUTO 0.04 K/mm3 (0.00-0.23); BASOPHILS PERCENT AUTO 1 % (0-2); EOSINOPHILS ABSOLUTE AUTO 0.21 K/mm3 (0.00-0.68); EOSINOPHILS PERCENT AUTO 6 % (0-6); Hematocrit 34.6 % (33.0-51.0); Hemoglobin 10.2 g/dL (11.5-16.0); IMMATURE GRAN ABSOLUTE AUTO 0.01 K/mm3 (0.00-0.10); IMMATURE GRAN PERCENT AUTO 0 % (0-1); LYMPHOCYTES ABSOLUTE AUTO 1.65 K/mm3 (0.84-5.20); LYMPHOCYTES PERCENT AUTO 46 % (21-46); MONOCYTES ABSOLUTE AUTO 0.25 K/mm3 (0.16-1.47); MONOCYTES PERCENT AUTO 7 % (4-13); Mean Corpuscular HGB 27.6 pg (26.0-34.0); Mean Corpuscular HGB Conc 29.5 g/dL (31.5-36.5); Mean Corpuscular Volume 94 fL (80-100); Mean Platelet Volume 9.7 fL (9.1-12.4); NEUTROPHILS ABSOLUTE AUTO 1.44 K/mm3 (1.96-9.15); NEUTROPHILS PERCENT AUTO 40 % (41-73); Platelet Count 207 K/mm3 (150-400); RDW Coefficient Variation 14.3 % (11.7-14.2); RDW Standard Deviation 48.8 fL (35.1-46.3)
[2022-03-08 12:34] LABS: Alanine Aminotransfer (ALT/SGP 146 U/L (12-78); Albumin, Blood 3.2 g/dL (3.4-5.0); Albumin/Globulin Ratio 0.7 (0.8-1.8); Alk Phos 275 U/L (50-136); Anion Gap 6 mmol/L (6-16); Aspartate Aminotrans (AST/SGOT 60 U/L (12-37); Bilirubin, Total 0.2 mg/dL (0.1-1.0); Blood Urea Nitrogen 19 mg/dL (8-24); Bun/Creatinine Ratio 23.7 (12.0-20.0); CO2, Blood 28 mmol/L (21-32); Chloride, Blood 107 mmol/L (98-108); Globulin, Blood 4.3 g/dL (2.2-4.0); Glomerular Filtration Rate 90 (60-); Glucose, Blood 84 mg/dL (70-99); Magnesium, Blood 2.2 mg/dL (1.6-2.4); Phosphorus, Blood 4.5 mg/dL (2.5-4.9); Potassium, Blood 4.3 mmol/L (3.5-5.5); Sodium, Blood 141 mmol/L (136-145); Total Protein, Blood 7.5 g/dL (6.4-8.2)
[2022-03-09 09:14] LABS: Triglycerides 107 mg/dL (30-160)
== END | disposition home or self-care (01) ==
LOC: LAB SHORT 10:25
PROVIDERS: Internal Medicine Nephrology
DX: G71.00 Muscular dystrophy, unspecified (principal); E43 Unspecified severe protein-calorie malnutrition; G73.7 Myopathy in diseases classified elsewhere; L89.92 Pressure ulcer of unspecified site, stage 2
CPT/HCPCS: 80053; 83735; 84100; 84478; 85025

== ENCOUNTER → 2022-03-11 | Outpatient (CLI) | payer BC, MEDICARE ==
[2022-03-11 10:35] LABS: BASOPHILS ABSOLUTE AUTO 0.04 K/mm3 (0.00-0.23); BASOPHILS PERCENT AUTO 1 % (0-2); EOSINOPHILS ABSOLUTE AUTO 0.31 K/mm3 (0.00-0.68); EOSINOPHILS PERCENT AUTO 8 % (0-6); Hematocrit 33.8 % (33.0-51.0); Hemoglobin 10.2 g/dL (11.5-16.0); IMMATURE GRAN PERCENT AUTO 0 % (0-1); LYMPHOCYTES ABSOLUTE AUTO 1.61 K/mm3 (0.84-5.20); LYMPHOCYTES PERCENT AUTO 39 % (21-46); MONOCYTES ABSOLUTE AUTO 0.29 K/mm3 (0.16-1.47); MONOCYTES PERCENT AUTO 7 % (4-13); Mean Corpuscular HGB 28.2 pg (26.0-34.0); Mean Corpuscular HGB Conc 30.2 g/dL (31.5-36.5); Mean Corpuscular Volume 93 fL (80-100); Mean Platelet Volume 9.8 fL (9.1-12.4); NEUTROPHILS ABSOLUTE AUTO 1.88 K/mm3 (1.96-9.15); NEUTROPHILS PERCENT AUTO 46 % (41-73); Platelet Count 199 K/mm3 (150-400); RDW Coefficient Variation 14.4 % (11.7-14.2); RDW Standard Deviation 49.6 fL (35.1-46.3); Red Blood Cell Count 3.62 M/mm3 (3.80-5.20); White Blood Cell Count 4.13 K/mm3 (4.00-11.30)
[2022-03-11 10:36] LABS: Alanine Aminotransfer (ALT/SGP 274 U/L (12-78); Albumin, Blood 3.2 g/dL (3.4-5.0); Albumin/Globulin Ratio 0.7 (0.8-1.8); Alk Phos 272 U/L (50-136); Anion Gap 6 mmol/L (6-16); Aspartate Aminotrans (AST/SGOT 96 U/L (12-37); Bilirubin, Total 0.3 mg/dL (0.1-1.0); Blood Urea Nitrogen 21 mg/dL (8-24); Bun/Creatinine Ratio 22.6 (12.0-20.0); CO2, Blood 27 mmol/L (21-32); Calcium, Blood 8.1 mg/dL (8.5-10.1); Chloride, Blood 106 mmol/L (98-108); Creatinine, Blood 0.93 mg/dL (0.40-1.00); Globulin, Blood 4.4 g/dL (2.2-4.0); Glomerular Filtration Rate 75 (60-); Glucose, Blood 91 mg/dL (70-99); Magnesium, Blood 2.3 mg/dL (1.6-2.4); Phosphorus, Blood 5.1 mg/dL (2.5-4.9); Sodium, Blood 139 mmol/L (136-145); Total Protein, Blood 7.6 g/dL (6.4-8.2); Triglycerides 88 mg/dL (30-160)
== END | disposition home or self-care (01) ==
LOC: LAB 08:30 → LAB SHORT 08:30
PROVIDERS: Internal Medicine Nephrology
DX: N18.30 Chronic kidney disease, stage 3 unspecified (principal); D63.1 Anemia in chronic kidney disease; E78.00 Pure hypercholesterolemia, unspecified; E83.42 Hypomagnesemia
CPT/HCPCS: 80053; 83735; 84100; 84478; 85025

== ENCOUNTER → 2022-03-18 | Outpatient (CLI) | payer BC, MEDICARE ==
[2022-03-18 13:27] LABS: Hematocrit 34.4 % (33.0-51.0); Hemoglobin 10.5 g/dL (11.5-16.0); Mean Corpuscular HGB 28.2 pg (26.0-34.0); Mean Corpuscular HGB Conc 30.5 g/dL (31.5-36.5); Mean Corpuscular Volume 92 fL (80-100); Mean Platelet Volume 10.1 fL (9.1-12.4); Platelet Count 192 K/mm3 (150-400); RDW Coefficient Variation 14.6 % (11.7-14.2); RDW Standard Deviation 49.8 fL (35.1-46.3); Red Blood Cell Count 3.73 M/mm3 (3.80-5.20); White Blood Cell Count 3.09 K/mm3 (4.00-11.30)
[2022-03-18 13:52] LABS: Alanine Aminotransfer (ALT/SGP 403 U/L (12-78); Albumin, Blood 3.4 g/dL (3.4-5.0); Albumin/Globulin Ratio 0.7 (0.8-1.8); Alk Phos 372 U/L (50-136); Anion Gap 8 mmol/L (6-16); Aspartate Aminotrans (AST/SGOT 251 U/L (12-37); Bilirubin, Total 0.4 mg/dL (0.1-1.0); Blood Urea Nitrogen 18 mg/dL (8-24); Bun/Creatinine Ratio 19.6 (12.0-20.0); CO2, Blood 24 mmol/L (21-32); Calcium, Blood 8.7 mg/dL (8.5-10.1); Chloride, Blood 107 mmol/L (98-108); Creatinine, Blood 0.92 mg/dL (0.40-1.00); Globulin, Blood 4.6 g/dL (2.2-4.0); Glomerular Filtration Rate 76 (60-); Glucose, Blood 112 mg/dL (70-99); Magnesium, Blood 2.1 mg/dL (1.6-2.4); Phosphorus, Blood 4.5 mg/dL (2.5-4.9); Potassium, Blood 3.8 mmol/L (3.5-5.5); Sodium, Blood 139 mmol/L (136-145); Triglycerides 94 mg/dL (30-160)
[2022-03-18 14:35] LABS: BAND PERCENT MAN 3 % (0-8); BASOPHILS ABSOLUTE MAN 0.03 K/mm3 (0.00-0.23); BASOPHILS PERCENT MAN 1 % (0-2); EOSINOPHILS ABSOLUTE MAN 0.15 K/mm3 (0.00-0.68); EOSINOPHILS PERCENT MAN 5 % (0-6); LYMPHOCYTES % ATYPICAL MANUAL 1 % (0-0); LYMPHOCYTES ABSOLUTE MAN 0.86 K/mm3 (0.84-5.20); LYMPHOCYTES PERCENT MAN 27 % (21-46); MONOCYTES ABSOLUTE MAN 0.09 K/mm3 (0.16-1.47); MONOCYTES PERCENT MAN 3 % (4-13); NEUTROPHILS ABSOLUTE MAN 1.94 K/mm3 (1.96-9.15); SEG NEUTROPHILS PERCENT MAN 60 % (41-73); TOTAL CELLS COUNTED 100
== END | disposition home or self-care (01) ==
LOC: LAB SHORT 12:32
PROVIDERS: Internal Medicine Nephrology
DX: G73.7 Myopathy in diseases classified elsewhere (principal); E43 Unspecified severe protein-calorie malnutrition; G71.00 Muscular dystrophy, unspecified; L89.92 Pressure ulcer of unspecified site, stage 2
CPT/HCPCS: 36415; 80053; 83735; 84100; 84478; 85025

== ENCOUNTER → 2022-03-25 | Outpatient (CLI) | payer BC, MEDICARE ==
[2022-03-25 13:23] LABS: Alanine Aminotransfer (ALT/SGP 231 U/L (12-78); Albumin, Blood 3.1 g/dL (3.4-5.0); Albumin/Globulin Ratio 0.7 (0.8-1.8); Alk Phos 303 U/L (50-136); Anion Gap 7 mmol/L (6-16); Aspartate Aminotrans (AST/SGOT 51 U/L (12-37); Bilirubin, Direct 0.2 mg/dL (0.0-0.3); Bilirubin, Total 0.5 mg/dL (0.1-1.0); Blood Urea Nitrogen 20 mg/dL (8-24); CO2, Blood 25 mmol/L (21-32); Calcium, Blood 8.3 mg/dL (8.5-10.1); Chloride, Blood 106 mmol/L (98-108); Globulin, Blood 4.6 g/dL (2.2-4.0); Glomerular Filtration Rate 90 (60-); Glucose, Blood 97 mg/dL (70-99); Magnesium, Blood 2.1 mg/dL (1.6-2.4); Phosphorus, Blood 3.3 mg/dL (2.5-4.9); Potassium, Blood 3.7 mmol/L (3.5-5.5); Prealbumin, Blood 16.7 mg/dL (20.0-40.0); Sodium, Blood 138 mmol/L (136-145); Total Protein, Blood 7.7 g/dL (6.4-8.2); Triglycerides 65 mg/dL (30-160)
[2022-03-25 13:25] LABS: Hematocrit 32.7 % (33.0-51.0); Mean Corpuscular HGB 28.1 pg (26.0-34.0); Mean Corpuscular HGB Conc 30.6 g/dL (31.5-36.5); Mean Corpuscular Volume 92 fL (80-100); Mean Platelet Volume 10.4 fL (9.1-12.4); Platelet Count 165 K/mm3 (150-400); RDW Coefficient Variation 14.6 % (11.7-14.2); RDW Standard Deviation 49.5 fL (35.1-46.3); Red Blood Cell Count 3.56 M/mm3 (3.80-5.20); White Blood Cell Count 3.51 K/mm3 (4.00-11.30)
[2022-03-25 14:18] LABS: BAND PERCENT MAN 2 % (0-8); BASOPHILS ABSOLUTE MAN 0.03 K/mm3 (0.00-0.23); BASOPHILS PERCENT MAN 1 % (0-2); EOSINOPHILS ABSOLUTE MAN 0.21 K/mm3 (0.00-0.68); EOSINOPHILS PERCENT MAN 6 % (0-6); LYMPHOCYTES % ATYPICAL MANUAL 3 % (0-0); LYMPHOCYTES ABSOLUTE MAN 1.47 K/mm3 (0.84-5.20); LYMPHOCYTES PERCENT MAN 39 % (21-46); MONOCYTES ABSOLUTE MAN 0.31 K/mm3 (0.16-1.47); MONOCYTES PERCENT MAN 9 % (4-13); NEUTROPHILS ABSOLUTE MAN 1.47 K/mm3 (1.96-9.15); SEG NEUTROPHILS PERCENT MAN 40 % (41-73); TOTAL CELLS COUNTED 100
== END | disposition home or self-care (01) ==
LOC: LAB SHORT 11:45 → LAB 11:45
PROVIDERS: Internal Medicine Nephrology
DX: E43 Unspecified severe protein-calorie malnutrition (principal); G71.00 Muscular dystrophy, unspecified; G73.7 Myopathy in diseases classified elsewhere; L89.92 Pressure ulcer of unspecified site, stage 2
CPT/HCPCS: 80053; 82248; 83735; 84100; 84134; 84478; 85025

== ENCOUNTER → 2022-04-01 | Outpatient (CLI) | payer BC, MEDICARE ==
[2022-04-01 15:06] LABS: BASOPHILS ABSOLUTE AUTO 0.04 K/mm3 (0.00-0.23); BASOPHILS PERCENT AUTO 1 % (0-2); EOSINOPHILS ABSOLUTE AUTO 0.13 K/mm3 (0.00-0.68); EOSINOPHILS PERCENT AUTO 3 % (0-6); Hematocrit 34.7 % (33.0-51.0); Hemoglobin 10.8 g/dL (11.5-16.0); IMMATURE GRAN ABSOLUTE AUTO 0.01 K/mm3 (0.00-0.10); IMMATURE GRAN PERCENT AUTO 0 % (0-1); LYMPHOCYTES ABSOLUTE AUTO 1.33 K/mm3 (0.84-5.20); LYMPHOCYTES PERCENT AUTO 31 % (21-46); MONOCYTES ABSOLUTE AUTO 0.31 K/mm3 (0.16-1.47); MONOCYTES PERCENT AUTO 7 % (4-13); Mean Corpuscular HGB 28.5 pg (26.0-34.0); Mean Corpuscular HGB Conc 31.1 g/dL (31.5-36.5); Mean Corpuscular Volume 92 fL (80-100); NEUTROPHILS ABSOLUTE AUTO 2.48 K/mm3 (1.96-9.15); NEUTROPHILS PERCENT AUTO 58 % (41-73); Platelet Count 249 K/mm3 (150-400); RDW Coefficient Variation 14.6 % (11.7-14.2); RDW Standard Deviation 49.1 fL (35.1-46.3); Red Blood Cell Count 3.79 M/mm3 (3.80-5.20)
[2022-04-01 15:27] LABS: Magnesium, Blood 2.1 mg/dL (1.6-2.4)
[2022-04-01 15:29] LABS: Alanine Aminotransfer (ALT/SGP 139 U/L (12-78); Albumin/Globulin Ratio 0.6 (0.8-1.8); Alk Phos 316 U/L (50-136); Anion Gap 7 mmol/L (6-16); Aspartate Aminotrans (AST/SGOT 54 U/L (12-37); Bilirubin, Total 0.2 mg/dL (0.1-1.0); Blood Urea Nitrogen 21 mg/dL (8-24); Bun/Creatinine Ratio 32.1 (12.0-20.0); CO2, Blood 24 mmol/L (21-32); Calcium, Blood 8.5 mg/dL (8.5-10.1); Chloride, Blood 108 mmol/L (98-108); Creatinine, Blood 0.65 mg/dL (0.40-1.00); Glomerular Filtration Rate 107 (60-); Glucose, Blood 97 mg/dL (70-99); Phosphorus, Blood 4.3 mg/dL (2.5-4.9); Sodium, Blood 139 mmol/L (136-145); Triglycerides 61 mg/dL (30-160)
== END | disposition home or self-care (01) ==
LOC: LAB 11:55 → LAB SHORT 11:55
PROVIDERS: Internal Medicine Nephrology
DX: E43 Unspecified severe protein-calorie malnutrition (principal); G73.7 Myopathy in diseases classified elsewhere; G71.00 Muscular dystrophy, unspecified; L89.92 Pressure ulcer of unspecified site, stage 2
CPT/HCPCS: 80053; 83735; 84100; 84478; 85025

== ENCOUNTER → 2022-04-08 | Outpatient (CLI) | payer BC, MEDICARE ==
[2022-04-08 15:26] LABS: Alanine Aminotransfer (ALT/SGP 212 U/L (12-78); Albumin, Blood 3.1 g/dL (3.4-5.0); Albumin/Globulin Ratio 0.7 (0.8-1.8); Alk Phos 270 U/L (50-136); Anion Gap 5 mmol/L (6-16); Aspartate Aminotrans (AST/SGOT 85 U/L (12-37); Bilirubin, Total 0.2 mg/dL (0.1-1.0); Blood Urea Nitrogen 23 mg/dL (8-24); CO2, Blood 27 mmol/L (21-32); Calcium, Blood 8.4 mg/dL (8.5-10.1); Chloride, Blood 108 mmol/L (98-108); Creatinine, Blood 0.79 mg/dL (0.40-1.00); Globulin, Blood 4.7 g/dL (2.2-4.0); Glomerular Filtration Rate 91 (60-); Glucose, Blood 94 mg/dL (70-99); Magnesium, Blood 2.1 mg/dL (1.6-2.4); Phosphorus, Blood 3.6 mg/dL (2.5-4.9); Potassium, Blood 4.1 mmol/L (3.5-5.5); Sodium, Blood 140 mmol/L (136-145); Total Protein, Blood 7.8 g/dL (6.4-8.2); Triglycerides 71 mg/dL (30-160)
[2022-04-08 15:38] LABS: BASOPHILS ABSOLUTE AUTO 0.06 K/mm3 (0.00-0.23); BASOPHILS PERCENT AUTO 2 % (0-2); EOSINOPHILS ABSOLUTE AUTO 0.12 K/mm3 (0.00-0.68); EOSINOPHILS PERCENT AUTO 3 % (0-6); Hematocrit 36.1 % (33.0-51.0); Hemoglobin 10.8 g/dL (11.5-16.0); IMMATURE GRAN PERCENT AUTO 0 % (0-1); LYMPHOCYTES ABSOLUTE AUTO 1.65 K/mm3 (0.84-5.20); LYMPHOCYTES PERCENT AUTO 40 % (21-46); MONOCYTES ABSOLUTE AUTO 0.34 K/mm3 (0.16-1.47); MONOCYTES PERCENT AUTO 8 % (4-13); Mean Corpuscular HGB 28.1 pg (26.0-34.0); Mean Corpuscular HGB Conc 29.9 g/dL (31.5-36.5); Mean Corpuscular Volume 94 fL (80-100); Mean Platelet Volume 10.2 fL (9.1-12.4); NEUTROPHILS ABSOLUTE AUTO 1.91 K/mm3 (1.96-9.15); NEUTROPHILS PERCENT AUTO 47 % (41-73); Platelet Count 226 K/mm3 (150-400); RDW Coefficient Variation 14.7 % (11.7-14.2); Red Blood Cell Count 3.84 M/mm3 (3.80-5.20); White Blood Cell Count 4.08 K/mm3 (4.00-11.30)
== END | disposition home or self-care (01) ==
LOC: LAB 12:00 → LAB SHORT 12:00
PROVIDERS: Internal Medicine Nephrology
DX: G71.00 Muscular dystrophy, unspecified (principal); G73.7 Myopathy in diseases classified elsewhere; E43 Unspecified severe protein-calorie malnutrition; L89.92 Pressure ulcer of unspecified site, stage 2
CPT/HCPCS: 80053; 83735; 84100; 84478; 85025

== ENCOUNTER → 2022-04-15 | Outpatient (CLI) | payer BC, MEDICARE ==
[2022-04-15 14:03] LABS: BASOPHILS ABSOLUTE AUTO 0.02 K/mm3 (0.00-0.23); BASOPHILS PERCENT AUTO 1 % (0-2); EOSINOPHILS PERCENT AUTO 3 % (0-6); Hematocrit 34.4 % (33.0-51.0); Hemoglobin 10.4 g/dL (11.5-16.0); IMMATURE GRAN ABSOLUTE AUTO 0.01 K/mm3 (0.00-0.10); IMMATURE GRAN PERCENT AUTO 0 % (0-1); LYMPHOCYTES ABSOLUTE AUTO 1.27 K/mm3 (0.84-5.20); LYMPHOCYTES PERCENT AUTO 39 % (21-46); MONOCYTES ABSOLUTE AUTO 0.35 K/mm3 (0.16-1.47); MONOCYTES PERCENT AUTO 11 % (4-13); Mean Corpuscular HGB 28.3 pg (26.0-34.0); Mean Corpuscular HGB Conc 30.2 g/dL (31.5-36.5); Mean Corpuscular Volume 94 fL (80-100); Mean Platelet Volume 10.5 fL (9.1-12.4); NEUTROPHILS PERCENT AUTO 46 % (41-73); Platelet Count 198 K/mm3 (150-400); RDW Coefficient Variation 15.1 % (11.7-14.2); RDW Standard Deviation 51.9 fL (35.1-46.3); Red Blood Cell Count 3.67 M/mm3 (3.80-5.20); White Blood Cell Count 3.25 K/mm3 (4.00-11.30)
[2022-04-15 17:25] LABS: Magnesium, Blood 2.1 mg/dL (1.6-2.4)
[2022-04-15 17:29] LABS: Alanine Aminotransfer (ALT/SGP 219 U/L (12-78); Albumin/Globulin Ratio 0.6 (0.8-1.8); Alk Phos 280 U/L (50-136); Anion Gap 7 mmol/L (6-16); Aspartate Aminotrans (AST/SGOT 50 U/L (12-37); Bilirubin, Total 0.2 mg/dL (0.1-1.0); Blood Urea Nitrogen 21 mg/dL (8-24); Bun/Creatinine Ratio 23.8 (12.0-20.0); CO2, Blood 25 mmol/L (21-32); Calcium, Blood 8.5 mg/dL (8.5-10.1); Chloride, Blood 108 mmol/L (98-108); Creatinine, Blood 0.88 mg/dL (0.40-1.00); Glomerular Filtration Rate 80 (60-); Glucose, Blood 102 mg/dL (70-99); Phosphorus, Blood 3.4 mg/dL (2.5-4.9); Potassium, Blood 3.8 mmol/L (3.5-5.5); Sodium, Blood 140 mmol/L (136-145); Triglycerides 73 mg/dL (30-160)
== END | disposition home or self-care (01) ==
LOC: LAB 11:55 → LAB SHORT 11:55
PROVIDERS: Internal Medicine Nephrology
DX: G73.7 Myopathy in diseases classified elsewhere (principal); E43 Unspecified severe protein-calorie malnutrition; G71.00 Muscular dystrophy, unspecified; L89.92 Pressure ulcer of unspecified site, stage 2
CPT/HCPCS: 80053; 83735; 84100; 84478; 85025

== ENCOUNTER → 2022-04-29 | Outpatient (CLI) | payer BC, MEDICARE ==
[2022-04-29 14:12] LABS: BASOPHILS ABSOLUTE AUTO 0.06 K/mm3 (0.00-0.23); BASOPHILS PERCENT AUTO 1 % (0-2); EOSINOPHILS PERCENT AUTO 4 % (0-6); Hematocrit 37.3 % (33.0-51.0); Hemoglobin 11.3 g/dL (11.5-16.0); IMMATURE GRAN ABSOLUTE AUTO 0.02 K/mm3 (0.00-0.10); IMMATURE GRAN PERCENT AUTO 0 % (0-1); LYMPHOCYTES PERCENT AUTO 41 % (21-46); MONOCYTES ABSOLUTE AUTO 0.33 K/mm3 (0.16-1.47); MONOCYTES PERCENT AUTO 6 % (4-13); Mean Corpuscular HGB 28.5 pg (26.0-34.0); Mean Corpuscular HGB Conc 30.3 g/dL (31.5-36.5); Mean Corpuscular Volume 94 fL (80-100); Mean Platelet Volume 10.4 fL (9.1-12.4); NEUTROPHILS ABSOLUTE AUTO 2.47 K/mm3 (1.96-9.15); NEUTROPHILS PERCENT AUTO 48 % (41-73); Platelet Count 225 K/mm3 (150-400); RDW Standard Deviation 52.4 fL (35.1-46.3); Red Blood Cell Count 3.97 M/mm3 (3.80-5.20); White Blood Cell Count 5.18 K/mm3 (4.00-11.30)
[2022-04-29 14:22] LABS: Iron Serum 154 ug/dL (50-170); Total Iron Binding Capacity 154 ug/dL (250-450); Triglycerides 66 mg/dL (30-160)
[2022-04-29 14:44] LABS: Albumin, Blood 3.2 g/dL (3.4-5.0); Albumin/Globulin Ratio 0.6 (0.8-1.8); Bilirubin, Total 0.3 mg/dL (0.1-1.0); Bun/Creatinine Ratio 27.5 (12.0-20.0); Calcium, Blood 8.4 mg/dL (8.5-10.1); Creatinine, Blood 0.77 mg/dL (0.40-1.00); Magnesium, Blood 2.1 mg/dL (1.6-2.4); Phosphorus, Blood 4.1 mg/dL (2.5-4.9); Potassium, Blood 4.5 mmol/L (3.5-5.5); Total Protein, Blood 8.2 g/dL (6.4-8.2)
== END | disposition home or self-care (01) ==
LOC: LAB SHORT 12:00 → LAB 12:00
PROVIDERS: Internal Medicine Nephrology
DX: E43 Unspecified severe protein-calorie malnutrition (principal); G71.00 Muscular dystrophy, unspecified; G73.7 Myopathy in diseases classified elsewhere; L89.92 Pressure ulcer of unspecified site, stage 2
CPT/HCPCS: 80053; 82306; 82607; 82746; 83540; 83550; 83735; 84100; 84478; 85025; 86140

== ENCOUNTER → 2022-05-27 | Outpatient (CLI) | payer BC, MEDICARE ==
[2022-05-27 15:35] LABS: BASOPHILS ABSOLUTE AUTO 0.05 K/mm3 (0.00-0.23); BASOPHILS PERCENT AUTO 1 % (0-2); EOSINOPHILS PERCENT AUTO 2 % (0-6); Hematocrit 33.3 % (33.0-51.0); IMMATURE GRAN ABSOLUTE AUTO 0.05 K/mm3 (0.00-0.10); IMMATURE GRAN PERCENT AUTO 1 % (0-1); LYMPHOCYTES ABSOLUTE AUTO 1.88 K/mm3 (0.84-5.20); LYMPHOCYTES PERCENT AUTO 30 % (21-46); MONOCYTES ABSOLUTE AUTO 0.43 K/mm3 (0.16-1.47); MONOCYTES PERCENT AUTO 7 % (4-13); Mean Corpuscular HGB 28.2 pg (26.0-34.0); Mean Corpuscular Volume 94 fL (80-100); Mean Platelet Volume 10.6 fL (9.1-12.4); NEUTROPHILS ABSOLUTE AUTO 3.81 K/mm3 (1.96-9.15); NEUTROPHILS PERCENT AUTO 60 % (41-73); Platelet Count 230 K/mm3 (150-400); RDW Coefficient Variation 14.6 % (11.7-14.2); RDW Standard Deviation 50.7 fL (35.1-46.3); Red Blood Cell Count 3.55 M/mm3 (3.80-5.20); White Blood Cell Count 6.32 K/mm3 (4.00-11.30)
[2022-05-27 16:08] LABS: Alanine Aminotransfer (ALT/SGP 181 U/L (12-78); Albumin/Globulin Ratio 0.6 (0.8-1.8); Alk Phos 381 U/L (50-136); Anion Gap 6 mmol/L (6-16); Aspartate Aminotrans (AST/SGOT 101 U/L (12-37); Bilirubin, Total 0.6 mg/dL (0.1-1.0); Blood Urea Nitrogen 16 mg/dL (8-24); Bun/Creatinine Ratio 16.2 (12.0-20.0); CO2, Blood 23 mmol/L (21-32); Calcium, Blood 8.5 mg/dL (8.5-10.1); Chloride, Blood 107 mmol/L (98-108); Creatinine, Blood 0.99 mg/dL (0.40-1.00); Globulin, Blood 5.4 g/dL (2.2-4.0); Glomerular Filtration Rate 69 (60-); Glucose, Blood 101 mg/dL (70-99); Magnesium, Blood 2.1 mg/dL (1.6-2.4); Phosphorus, Blood 3.9 mg/dL (2.5-4.9); Sodium, Blood 136 mmol/L (136-145); Total Protein, Blood 8.4 g/dL (6.4-8.2); Triglycerides 122 mg/dL (30-160)
== END | disposition home or self-care (01) ==
LOC: LAB SHORT 12:30 → LAB 12:30
PROVIDERS: Internal Medicine Nephrology
DX: Z13.6 Encounter for screening for cardiovascular disorders (principal); G71.00 Muscular dystrophy, unspecified; L89.92 Pressure ulcer of unspecified site, stage 2
CPT/HCPCS: 80053; 83735; 84100; 84478; 85025

== ENCOUNTER → 2022-06-03 | Outpatient (CLI) | payer BC, MEDICARE ==
[2022-06-03 13:37] LABS: BASOPHILS ABSOLUTE AUTO 0.03 K/mm3 (0.00-0.23); BASOPHILS PERCENT AUTO 0 % (0-2); EOSINOPHILS ABSOLUTE AUTO 0.11 K/mm3 (0.00-0.68); EOSINOPHILS PERCENT AUTO 1 % (0-6); Hematocrit 29.8 % (33.0-51.0); IMMATURE GRAN ABSOLUTE AUTO 0.04 K/mm3 (0.00-0.10); IMMATURE GRAN PERCENT AUTO 1 % (0-1); LYMPHOCYTES PERCENT AUTO 13 % (21-46); MONOCYTES PERCENT AUTO 7 % (4-13); Mean Corpuscular HGB 28.2 pg (26.0-34.0); Mean Corpuscular HGB Conc 30.2 g/dL (31.5-36.5); Mean Corpuscular Volume 93 fL (80-100); Mean Platelet Volume 10.6 fL (9.1-12.4); NEUTROPHILS ABSOLUTE AUTO 6.06 K/mm3 (1.96-9.15); NEUTROPHILS PERCENT AUTO 78 % (41-73); Platelet Count 204 K/mm3 (150-400); RDW Standard Deviation 48.1 fL (35.1-46.3); Red Blood Cell Count 3.19 M/mm3 (3.80-5.20); White Blood Cell Count 7.74 K/mm3 (4.00-11.30)
[2022-06-03 14:45] LABS: Alanine Aminotransfer (ALT/SGP 218 U/L (12-78); Albumin, Blood 2.6 g/dL (3.4-5.0); Albumin/Globulin Ratio 0.5 (0.8-1.8); Alk Phos 221 U/L (50-136); Anion Gap 7 mmol/L (6-16); Aspartate Aminotrans (AST/SGOT 73 U/L (12-37); Bilirubin, Total 0.6 mg/dL (0.1-1.0); Blood Urea Nitrogen 17 mg/dL (8-24); Bun/Creatinine Ratio 19.8 (12.0-20.0); CO2, Blood 21 mmol/L (21-32); Calcium, Blood 8.1 mg/dL (8.5-10.1); Chloride, Blood 110 mmol/L (98-108); Creatinine, Blood 0.86 mg/dL (0.40-1.00); Globulin, Blood 5.5 g/dL (2.2-4.0); Glomerular Filtration Rate 82 (60-); Glucose, Blood 121 mg/dL (70-99); Phosphorus, Blood 2.8 mg/dL (2.5-4.9); Potassium, Blood 3.8 mmol/L (3.5-5.5); Prealbumin, Blood 7.3 mg/dL (20.0-40.0); Sodium, Blood 138 mmol/L (136-145); Total Protein, Blood 8.1 g/dL (6.4-8.2); Triglycerides 82 mg/dL (30-160)
== END | disposition home or self-care (01) ==
LOC: LAB 12:00 → LAB SHORT 12:00
PROVIDERS: Internal Medicine Nephrology
DX: L89.92 Pressure ulcer of unspecified site, stage 2 (principal); G71.00 Muscular dystrophy, unspecified; E43 Unspecified severe protein-calorie malnutrition; G73.7 Myopathy in diseases classified elsewhere
CPT/HCPCS: 80053; 83735; 84100; 84134; 84478; 85025

== ENCOUNTER → 2022-06-17 | Outpatient (CLI) | payer BC, MEDICARE ==
[2022-06-17 16:10] LABS: BASOPHILS ABSOLUTE AUTO 0.04 K/mm3 (0.00-0.23); BASOPHILS PERCENT AUTO 1 % (0-2); EOSINOPHILS ABSOLUTE AUTO 0.09 K/mm3 (0.00-0.68); EOSINOPHILS PERCENT AUTO 1 % (0-6); Hematocrit 26.3 % (33.0-51.0); IMMATURE GRAN ABSOLUTE AUTO 0.03 K/mm3 (0.00-0.10); IMMATURE GRAN PERCENT AUTO 1 % (0-1); LYMPHOCYTES ABSOLUTE AUTO 1.56 K/mm3 (0.84-5.20); LYMPHOCYTES PERCENT AUTO 25 % (21-46); MONOCYTES ABSOLUTE AUTO 0.43 K/mm3 (0.16-1.47); MONOCYTES PERCENT AUTO 7 % (4-13); Mean Corpuscular HGB 28.3 pg (26.0-34.0); Mean Corpuscular HGB Conc 30.4 g/dL (31.5-36.5); Mean Corpuscular Volume 93 fL (80-100); Mean Platelet Volume 10.6 fL (9.1-12.4); NEUTROPHILS ABSOLUTE AUTO 4.21 K/mm3 (1.96-9.15); NEUTROPHILS PERCENT AUTO 66 % (41-73); Platelet Count 237 K/mm3 (150-400); RDW Coefficient Variation 14.6 % (11.7-14.2); RDW Standard Deviation 49.8 fL (35.1-46.3); Red Blood Cell Count 2.83 M/mm3 (3.80-5.20); White Blood Cell Count 6.36 K/mm3 (4.00-11.30)
[2022-06-17 16:13] LABS: Magnesium, Blood 2.1 mg/dL (1.6-2.4)
[2022-06-17 16:25] LABS: Prealbumin, Blood 10.9 mg/dL (20.0-40.0)
[2022-06-17 16:26] LABS: Alanine Aminotransfer (ALT/SGP 123 U/L (12-78); Albumin, Blood 2.5 g/dL (3.4-5.0); Albumin/Globulin Ratio 0.5 (0.8-1.8); Alk Phos 302 U/L (50-136); Anion Gap 4 mmol/L (6-16); Aspartate Aminotrans (AST/SGOT 62 U/L (12-37); Bilirubin, Total 0.4 mg/dL (0.1-1.0); Blood Urea Nitrogen 21 mg/dL (8-24); Bun/Creatinine Ratio 17.6 (12.0-20.0); CO2, Blood 27 mmol/L (21-32); Calcium, Blood 8.2 mg/dL (8.5-10.1); Chloride, Blood 105 mmol/L (98-108); Creatinine, Blood 1.19 mg/dL (0.40-1.00); Globulin, Blood 5.4 g/dL (2.2-4.0); Glomerular Filtration Rate 56 (60-); Glucose, Blood 109 mg/dL (70-99); Phosphorus, Blood 3.5 mg/dL (2.5-4.9); Potassium, Blood 3.7 mmol/L (3.5-5.5); Sodium, Blood 136 mmol/L (136-145); Total Protein, Blood 7.9 g/dL (6.4-8.2); Triglycerides 103 mg/dL (30-160)
== END | disposition home or self-care (01) ==
LOC: LAB SHORT 12:40
PROVIDERS: Internal Medicine Nephrology
DX: E43 Unspecified severe protein-calorie malnutrition (principal); G73.7 Myopathy in diseases classified elsewhere; G71.00 Muscular dystrophy, unspecified; L89.92 Pressure ulcer of unspecified site, stage 2
CPT/HCPCS: 80053; 83735; 84100; 84134; 84478; 85025

== ENCOUNTER → 2022-06-24 | Outpatient (CLI) | payer BC, MEDICARE ==
[2022-06-24 13:29] LABS: BASOPHILS ABSOLUTE AUTO 0.04 K/mm3 (0.00-0.23); BASOPHILS PERCENT AUTO 1 % (0-2); EOSINOPHILS ABSOLUTE AUTO 0.08 K/mm3 (0.00-0.68); EOSINOPHILS PERCENT AUTO 2 % (0-6); Hematocrit 30.4 % (33.0-51.0); IMMATURE GRAN ABSOLUTE AUTO 0.03 K/mm3 (0.00-0.10); IMMATURE GRAN PERCENT AUTO 1 % (0-1); LYMPHOCYTES PERCENT AUTO 43 % (21-46); MONOCYTES ABSOLUTE AUTO 0.32 K/mm3 (0.16-1.47); MONOCYTES PERCENT AUTO 7 % (4-13); Mean Corpuscular HGB 27.4 pg (26.0-34.0); Mean Corpuscular HGB Conc 29.6 g/dL (31.5-36.5); Mean Corpuscular Volume 92 fL (80-100); Mean Platelet Volume 10.6 fL (9.1-12.4); NEUTROPHILS ABSOLUTE AUTO 2.35 K/mm3 (1.96-9.15); NEUTROPHILS PERCENT AUTO 48 % (41-73); Platelet Count 208 K/mm3 (150-400); RDW Standard Deviation 50.3 fL (35.1-46.3); Red Blood Cell Count 3.29 M/mm3 (3.80-5.20); White Blood Cell Count 4.92 K/mm3 (4.00-11.30)
[2022-06-24 18:50] LABS: Alanine Aminotransfer (ALT/SGP 130 U/L (12-78); Albumin, Blood 2.6 g/dL (3.4-5.0); Albumin/Globulin Ratio 0.4 (0.8-1.8); Alk Phos 381 U/L (50-136); Anion Gap 5 mmol/L (6-16); Aspartate Aminotrans (AST/SGOT 70 U/L (12-37); Bilirubin, Total 0.6 mg/dL (0.1-1.0); Blood Urea Nitrogen 21 mg/dL (8-24); Bun/Creatinine Ratio 19.6 (12.0-20.0); CO2, Blood 25 mmol/L (21-32); Calcium, Blood 8.2 mg/dL (8.5-10.1); Chloride, Blood 105 mmol/L (98-108); Creatinine, Blood 1.07 mg/dL (0.40-1.00); Globulin, Blood 5.9 g/dL (2.2-4.0); Glomerular Filtration Rate 63 (60-); Glucose, Blood 98 mg/dL (70-99); Magnesium, Blood 2.1 mg/dL (1.6-2.4); Phosphorus, Blood 3.8 mg/dL (2.5-4.9); Potassium, Blood 4.3 mmol/L (3.5-5.5); Sodium, Blood 135 mmol/L (136-145); Total Protein, Blood 8.5 g/dL (6.4-8.2); Triglycerides 114 mg/dL (30-160)
== END | disposition home or self-care (01) ==
LOC: LAB 11:00 → LAB SHORT 11:00
PROVIDERS: Internal Medicine Nephrology
DX: E43 Unspecified severe protein-calorie malnutrition (principal); G73.7 Myopathy in diseases classified elsewhere; G71.00 Muscular dystrophy, unspecified; L89.92 Pressure ulcer of unspecified site, stage 2
CPT/HCPCS: 80053; 83735; 84100; 84478; 85025

== ENCOUNTER → 2022-08-05 | Outpatient (CLI) | payer BC, MEDICARE ==
[2022-08-05 13:29] LABS: Hematocrit 29.8 % (33.0-51.0); Hemoglobin 9.2 g/dL (11.5-16.0); Mean Corpuscular HGB Conc 30.9 g/dL (31.5-36.5); Mean Corpuscular Volume 91 fL (80-100); Mean Platelet Volume 10.3 fL (9.1-12.4); Platelet Count 223 K/mm3 (150-400); RDW Coefficient Variation 15.3 % (11.7-14.2); Red Blood Cell Count 3.29 M/mm3 (3.80-5.20)
[2022-08-05 14:14] LABS: Iron Serum 50 ug/dL (50-170); Magnesium, Blood 1.9 mg/dL (1.6-2.4)
[2022-08-05 14:15] LABS: Percent Saturation 43.1 % (15.0-50.0); Total Iron Binding Capacity 116 ug/dL (250-450)
[2022-08-05 14:38] LABS: Alanine Aminotransfer (ALT/SGP 52 U/L (12-78); Albumin, Blood 2.9 g/dL (3.4-5.0); Albumin/Globulin Ratio 0.5 (0.8-1.8); Alk Phos 158 U/L (50-136); Anion Gap 6 mmol/L (6-16); Aspartate Aminotrans (AST/SGOT 41 U/L (12-37); Bilirubin, Total 0.4 mg/dL (0.1-1.0); Blood Urea Nitrogen 16 mg/dL (8-24); Bun/Creatinine Ratio 16.9 (12.0-20.0); CO2, Blood 25 mmol/L (21-32); Calcium, Blood 8.3 mg/dL (8.5-10.1); Chloride, Blood 104 mmol/L (98-108); Creatinine, Blood 0.95 mg/dL (0.40-1.00); Ferritin, Serum 881 ng/mL (8-252); Globulin, Blood 6.3 g/dL (2.2-4.0); Glomerular Filtration Rate 73 (60-); Glucose, Blood 86 mg/dL (70-99); Potassium, Blood 3.8 mmol/L (3.5-5.5); Sodium, Blood 135 mmol/L (136-145); Total Protein, Blood 9.2 g/dL (6.4-8.2); Triglycerides 118 mg/dL (30-160)
[2022-08-05 15:45] LABS: BASOPHILS PERCENT MAN 0 % (0-2); EOSINOPHILS PERCENT MAN 0 % (0-6); LYMPHOCYTES % ATYPICAL MANUAL 1 % (0-0); LYMPHOCYTES PERCENT MAN 59 % (21-46); MONOCYTES ABSOLUTE MAN 0.49 K/mm3 (0.16-1.47); MONOCYTES PERCENT MAN 11 % (4-13); SEG NEUTROPHILS PERCENT MAN 29 % (41-73); TOTAL CELLS COUNTED 100
== END | disposition home or self-care (01) ==
LOC: LAB SHORT 11:30 → LAB 11:30
PROVIDERS: Internal Medicine Nephrology
DX: E43 Unspecified severe protein-calorie malnutrition (principal); G71.00 Muscular dystrophy, unspecified; L89.92 Pressure ulcer of unspecified site, stage 2; G73.7 Myopathy in diseases classified elsewhere
CPT/HCPCS: 80053; 82607; 82728; 82746; 83540; 83550; 83735; 84100; 84478; 85025; 86140

== ENCOUNTER → 2022-08-12 | Outpatient (CLI) | payer BC, MEDICARE ==
[~2022-08-12] MED LIST changes: +BENADRYL25 MG IV; +CEPH500 PO; +PROBIOTIC1 EA13 PO
[2022-08-12 15:32] LABS: Hematocrit 28.2 % (33.0-51.0); Hemoglobin 8.8 g/dL (11.5-16.0); Mean Corpuscular HGB 27.7 pg (26.0-34.0); Mean Corpuscular HGB Conc 31.2 g/dL (31.5-36.5); Mean Corpuscular Volume 89 fL (80-100); Platelet Count 220 K/mm3 (150-400); RDW Coefficient Variation 15.9 % (11.7-14.2); RDW Standard Deviation 52.6 fL (35.1-46.3); Red Blood Cell Count 3.18 M/mm3 (3.80-5.20); White Blood Cell Count 5.55 K/mm3 (4.00-11.30)
[2022-08-12 16:02] LABS: Alanine Aminotransfer (ALT/SGP 48 U/L (12-78); Albumin/Globulin Ratio 0.5 (0.8-1.8); Alk Phos 164 U/L (50-136); Anion Gap 5 mmol/L (6-16); Aspartate Aminotrans (AST/SGOT 42 U/L (12-37); Bilirubin, Total 0.4 mg/dL (0.1-1.0); Blood Urea Nitrogen 20 mg/dL (8-24); Bun/Creatinine Ratio 24.8 (12.0-20.0); CO2, Blood 27 mmol/L (21-32); Calcium, Blood 8.1 mg/dL (8.5-10.1); Chloride, Blood 104 mmol/L (98-108); Creatinine, Blood 0.81 mg/dL (0.40-1.00); Globulin, Blood 5.6 g/dL (2.2-4.0); Glomerular Filtration Rate 88 (60-); Glucose, Blood 88 mg/dL (70-99); Phosphorus, Blood 2.8 mg/dL (2.5-4.9); Potassium, Blood 3.9 mmol/L (3.5-5.5); Sodium, Blood 136 mmol/L (136-145); Total Protein, Blood 8.6 g/dL (6.4-8.2); Triglycerides 134 mg/dL (30-160)
[2022-08-12 19:39] LABS: BASOPHILS PERCENT MAN 0 % (0-2); EOSINOPHILS ABSOLUTE MAN 0.11 K/mm3 (0.00-0.68); EOSINOPHILS PERCENT MAN 2 % (0-6); LYMPHOCYTES % ATYPICAL MANUAL 5 % (0-0); LYMPHOCYTES ABSOLUTE MAN 3.33 K/mm3 (0.84-5.20); LYMPHOCYTES PERCENT MAN 55 % (21-46); MONOCYTES ABSOLUTE MAN 0.55 K/mm3 (0.16-1.47); MONOCYTES PERCENT MAN 10 % (4-13); NEUTROPHILS ABSOLUTE MAN 1.55 K/mm3 (1.96-9.15); SEG NEUTROPHILS PERCENT MAN 28 % (41-73); TOTAL CELLS COUNTED 100
== END | disposition home or self-care (01) ==
LOC: LAB SHORT 12:10 → LAB 12:10
PROVIDERS: Internal Medicine Nephrology
DX: L89.92 Pressure ulcer of unspecified site, stage 2 (principal); G73.7 Myopathy in diseases classified elsewhere; E43 Unspecified severe protein-calorie malnutrition; G71.00 Muscular dystrophy, unspecified
CPT/HCPCS: 80053; 83735; 84100; 84478; 85025

== ENCOUNTER 2022-08-19 16:05 | Observation (INO) | payer BC, MEDICARE ==
[~2022-08-19] VITALS: Ht 170.2 cm; Wt 54.4 kg
[~2022-08-19 16:05] MED LIST changes: -BENADRYL25 MG IV; -CEPH500 PO; -PROBIOTIC1 EA13 PO
[2022-08-19] MEDS ORDERED: HYDMOR8 PO (20:56)
[2022-08-19] MEDS ORDERED: BENADRYL25 MG IV (20:57)
--- NOTE | 2022-08-20 00:46 | NUR ---
2205 PT ARRIVED VIA GURNEY WITH ON BEDSIDE. PT TRANSFERED IN BED INDEPENDENTLY. TREMELOUS, REPORTS CHRONIC PAIN 9/10 ALL OVER. AND PAIN ON L FLANK REGION DUE TO SHINGLES. PT APPEARS TO HAVE SOME RASH/REDNESS ON L FLANK AREA. PT ALSO REPORTS NAUSEA RELATED TO ARMIN'S DISEASE FLARE UPS, STATING THAT SHE TAKES 100MG BENADRYL Q4 PRN BECAUSE SHE IS ALLERGIC TO ALL NAUSEA MEDS. PT HAS BEEN TAKING BENADRYL 100MG IV FOR A YEAR NOW AT HOME. LAST DOSE WAS THIS MORNING AT 0400, GIVEN IN HIS MEDIPORT. MEDIPORT ON RU CHEST, APPEARS TO BE RED, PT DENIES PAIN ON MEDIPORT SITE. RU CHEST MEDIPORT SITE WAS DRESSED WITH GAUZE AND TEGADERM AT THE BEGINNING OF SHIFT BECAUSE OLD DRESSING FELL OFF THE FLOOR UPON TRANSFER IN THE UNIT. PT AOX4. APPEARS TO BE IN DISTRESSED DUE TO C.PAIN. NPO AFTER MIDNIGHT. PT REPORTS THAT SHE HAS NOT BEEN EATING SINCE LAST JANUARY 2022, WHEN TPN WAS STARTED. TPN AT HOME FOR 16HRS. CALL LIGHT WITHIN REACH. VSS. WILL CONTINUE TO MONITOR PATIENT.
--- NOTE | 2022-08-20 06:05 | NUR ---
SHIFT SUMMARY PT AOX4. ADMITTED D/T MEDIPORT SITE INFECTION WITH REDNESS/SKINBREAKDOWN BUT DENIES PAIN IN THIS AREA. PT REPORTS CHRONIC PAIN ALL OVER. TAKES DILAUDID 8MG PO Q4, PT ALSO REPORTS SHINGLES X2 WEEKS WITH PAINFUL RASH/REDNESS ON L FLANK PAIN. PT ALSO REPORTS NAUSEA WITH ARMIN'S DISEASE FLARE-UPS AND TAKES BENADRYL 100MG Q4 AT HOME. PT IS BEING TREATED WITH BENADRYL 50MG UPON ADMISSION. PT DENIES RELIEF. REQUESTING FOR 100MG DOSE THIS MORNING. CALLED AND NOTIFIED DR. CUEVAS, AWAITING FOR NEW ORDERS. PT VOIDING. 1SBA TO BATHROOM. VSS. BP ON SOFT SIDE AT BASELINE PER PT. CALL LIGHT WITHIN REACH. WILL PROVIDE REPORT TO ONCOMING NURSE.
[2022-08-20 08:58] LABS: BASOPHILS ABSOLUTE AUTO 0.02 K/mm3 (0.00-0.23); BASOPHILS PERCENT AUTO 0 % (0-2); EOSINOPHILS ABSOLUTE AUTO 0.06 K/mm3 (0.00-0.68); EOSINOPHILS PERCENT AUTO 1 % (0-6); Hematocrit 27.4 % (33.0-51.0); Hemoglobin 8.5 g/dL (11.5-16.0); IMMATURE GRAN ABSOLUTE AUTO 0.01 K/mm3 (0.00-0.10); IMMATURE GRAN PERCENT AUTO 0 % (0-1); LYMPHOCYTES ABSOLUTE AUTO 3.05 K/mm3 (0.84-5.20); LYMPHOCYTES PERCENT AUTO 64 % (21-46); MONOCYTES ABSOLUTE AUTO 0.42 K/mm3 (0.16-1.47); MONOCYTES PERCENT AUTO 9 % (4-13); Mean Corpuscular HGB 27.9 pg (26.0-34.0); Mean Corpuscular Volume 90 fL (80-100); Mean Platelet Volume 10.3 fL (9.1-12.4); NEUTROPHILS ABSOLUTE AUTO 1.22 K/mm3 (1.96-9.15); NEUTROPHILS PERCENT AUTO 26 % (41-73); Platelet Count 169 K/mm3 (150-400); RDW Coefficient Variation 15.8 % (11.7-14.2); RDW Standard Deviation 52.7 fL (35.1-46.3); Red Blood Cell Count 3.05 M/mm3 (3.80-5.20); White Blood Cell Count 4.78 K/mm3 (4.00-11.30)
[2022-08-20 09:21] LABS: Albumin, Blood 2.7 g/dL (3.4-5.0); Albumin/Globulin Ratio 0.4 (0.8-1.8); Bilirubin, Total 0.3 mg/dL (0.1-1.0); Bun/Creatinine Ratio 22.3 (12.0-20.0); Calcium, Blood 8.2 mg/dL (8.5-10.1); Creatinine, Blood 0.9 mg/dL (0.40-1.00); Potassium, Blood 3.4 mmol/L (3.5-5.5); Total Protein, Blood 8.7 g/dL (6.4-8.2)
[2022-08-20] MEDS ORDERED: CEPH500 PO (16:09)
[2022-08-20] MEDS ORDERED: PROBIOTIC1 EA13 PO (16:09)
--- NOTE | 2022-08-20 16:35 | NUR ---
DISCHARGE PT LEFT AT 1630. INSTRUCTIONS GIVEN TO PATIENT AND SPOUSE FOR PICC LINE CARE AT HOME. SHE PLANS TO FOLLOW UP WITH DR. HANSEN ON TUESDAY FOR PORT REMOVAL AND REPLACEMENT. PAIN MANAGED PER EMAR, PT EAGER TO GET HOME AND CONTINUE HOME REGIMEN. ALL BELONGINGS WITH PATIENT, MEDICATIONS FAXED TO PHARMACY.
== END 2022-08-20 16:40 | disposition home or self-care (01) ==
LOC: ER 16:05 → SURS 16:06 → ER 21:43 → SURS 22:05
PROVIDERS: Family Medicine; ADMIT Internal Medicine
DX: L76.82 Other postprocedural complications of skin and subcutaneous tissue (principal); Y83.8 Other surgical procedures as the cause of abnormal reaction of the patient, or of later complication, without mention of misadventure at the time of the procedure; E27.1 Primary adrenocortical insufficiency; R13.10 Dysphagia, unspecified; I95.1 Orthostatic hypotension; N25.89 Other disorders resulting from impaired renal tubular function; D63.8 Anemia in other chronic diseases classified elsewhere
CPT/HCPCS: 36569; 71045; 80053; 85025; 90686; A9270; C1751; J0690; J1170; J1200; J7050

== ENCOUNTER → 2022-08-19 | Outpatient (CLI) | payer BC, MEDICARE ==
[2022-08-19 13:55] LABS: BASOPHILS ABSOLUTE AUTO 0.03 K/mm3 (0.00-0.23); BASOPHILS PERCENT AUTO 1 % (0-2); EOSINOPHILS ABSOLUTE AUTO 0.02 K/mm3 (0.00-0.68); EOSINOPHILS PERCENT AUTO 0 % (0-6); Hematocrit 28.7 % (33.0-51.0); Hemoglobin 8.9 g/dL (11.5-16.0); IMMATURE GRAN ABSOLUTE AUTO 0.01 K/mm3 (0.00-0.10); IMMATURE GRAN PERCENT AUTO 0 % (0-1); LYMPHOCYTES ABSOLUTE AUTO 3.04 K/mm3 (0.84-5.20); LYMPHOCYTES PERCENT AUTO 59 % (21-46); MONOCYTES ABSOLUTE AUTO 0.28 K/mm3 (0.16-1.47); MONOCYTES PERCENT AUTO 5 % (4-13); Mean Corpuscular HGB 27.9 pg (26.0-34.0); Mean Corpuscular Volume 90 fL (80-100); Mean Platelet Volume 10.9 fL (9.1-12.4); NEUTROPHILS ABSOLUTE AUTO 1.76 K/mm3 (1.96-9.15); NEUTROPHILS PERCENT AUTO 34 % (41-73); Platelet Count 198 K/mm3 (150-400); RDW Coefficient Variation 15.8 % (11.7-14.2); RDW Standard Deviation 52.8 fL (35.1-46.3); Red Blood Cell Count 3.19 M/mm3 (3.80-5.20); White Blood Cell Count 5.14 K/mm3 (4.00-11.30)
[2022-08-19 15:22] LABS: Alanine Aminotransfer (ALT/SGP 92 U/L (12-78); Albumin, Blood 2.9 g/dL (3.4-5.0); Albumin/Globulin Ratio 0.5 (0.8-1.8); Alk Phos 368 U/L (50-136); Anion Gap 5 mmol/L (6-16); Aspartate Aminotrans (AST/SGOT 53 U/L (12-37); Bilirubin, Total 0.3 mg/dL (0.1-1.0); Blood Urea Nitrogen 23 mg/dL (8-24); Bun/Creatinine Ratio 25.1 (12.0-20.0); CO2, Blood 29 mmol/L (21-32); Calcium, Blood 7.9 mg/dL (8.5-10.1); Chloride, Blood 103 mmol/L (98-108); Creatinine, Blood 0.92 mg/dL (0.40-1.00); Globulin, Blood 5.8 g/dL (2.2-4.0); Glomerular Filtration Rate 76 (60-); Glucose, Blood 91 mg/dL (70-99); Magnesium, Blood 2.2 mg/dL (1.6-2.4); Phosphorus, Blood 2.8 mg/dL (2.5-4.9); Potassium, Blood 3.8 mmol/L (3.5-5.5); Sodium, Blood 137 mmol/L (136-145); Total Protein, Blood 8.7 g/dL (6.4-8.2); Triglycerides 133 mg/dL (30-160)
== END ==
LOC: LAB SHORT 11:30 → LAB 11:30
PROVIDERS: Internal Medicine Nephrology
DX: E43 Unspecified severe protein-calorie malnutrition (principal); G73.7 Myopathy in diseases classified elsewhere; G71.00 Muscular dystrophy, unspecified; L89.92 Pressure ulcer of unspecified site, stage 2
CPT/HCPCS: 80053; 83735; 84100; 84478; 85025

== ENCOUNTER 2022-08-23 09:03 | Day surgery (SDC) | payer BC, MEDICARE ==
[~2022-08-23 09:03] MED LIST changes: +BENADRYL25 MG IV; +CEPH500 PO; +PROBIOTIC1 EA13 PO
[2022-08-26] MEDS ORDERED: AMIL5 PO (07:35)
== END 2022-08-23 11:12 | disposition home or self-care (01) ==
LOC: ATC 09:03
DX: I12.9 Hypertensive chronic kidney disease with stage 1 through stage 4 chronic kidney disease, or unspecified chronic kidney disease (principal); N18.2 Chronic kidney disease, stage 2 (mild); D63.1 Anemia in chronic kidney disease; N25.81 Secondary hyperparathyroidism of renal origin; D50.9 Iron deficiency anemia, unspecified; E86.9 Volume depletion, unspecified; E87.6 Hypokalemia; E87.5 Hyperkalemia; E83.30 Disorder of phosphorus metabolism, unspecified; E55.9 Vitamin D deficiency, unspecified; N20.0 Calculus of kidney
CPT/HCPCS: 99213

== ENCOUNTER → 2022-08-26 | Outpatient (CLI) | payer BC, MEDICARE ==
[2022-08-26 15:49] LABS: BASOPHILS ABSOLUTE AUTO 0.02 K/mm3 (0.00-0.23); BASOPHILS PERCENT AUTO 1 % (0-2); EOSINOPHILS ABSOLUTE AUTO 0.05 K/mm3 (0.00-0.68); EOSINOPHILS PERCENT AUTO 2 % (0-6); Hematocrit 31.8 % (33.0-51.0); Hemoglobin 9.4 g/dL (11.5-16.0); IMMATURE GRAN ABSOLUTE AUTO 0.01 K/mm3 (0.00-0.10); IMMATURE GRAN PERCENT AUTO 0 % (0-1); LYMPHOCYTES ABSOLUTE AUTO 2.06 K/mm3 (0.84-5.20); LYMPHOCYTES PERCENT AUTO 63 % (21-46); MONOCYTES ABSOLUTE AUTO 0.29 K/mm3 (0.16-1.47); MONOCYTES PERCENT AUTO 9 % (4-13); Mean Corpuscular HGB 26.9 pg (26.0-34.0); Mean Corpuscular HGB Conc 29.6 g/dL (31.5-36.5); Mean Corpuscular Volume 91 fL (80-100); Mean Platelet Volume 10.8 fL (9.1-12.4); NEUTROPHILS ABSOLUTE AUTO 0.84 K/mm3 (1.96-9.15); NEUTROPHILS PERCENT AUTO 26 % (41-73); Platelet Count 166 K/mm3 (150-400); RDW Coefficient Variation 15.4 % (11.7-14.2); Red Blood Cell Count 3.49 M/mm3 (3.80-5.20); White Blood Cell Count 3.27 K/mm3 (4.00-11.30)
[2022-08-26 16:07] LABS: Alanine Aminotransfer (ALT/SGP 138 U/L (12-78); Albumin, Blood 2.7 g/dL (3.4-5.0); Albumin/Globulin Ratio 0.5 (0.8-1.8); Alk Phos 438 U/L (50-136); Anion Gap 5 mmol/L (6-16); Aspartate Aminotrans (AST/SGOT 97 U/L (12-37); Bilirubin, Total 0.3 mg/dL (0.1-1.0); Blood Urea Nitrogen 21 mg/dL (8-24); Bun/Creatinine Ratio 22.2 (12.0-20.0); CO2, Blood 26 mmol/L (21-32); Calcium, Blood 7.9 mg/dL (8.5-10.1); Chloride, Blood 106 mmol/L (98-108); Creatinine, Blood 0.94 mg/dL (0.40-1.00); Globulin, Blood 5.3 g/dL (2.2-4.0); Glomerular Filtration Rate 74 (60-); Glucose, Blood 100 mg/dL (70-99); Magnesium, Blood 1.9 mg/dL (1.6-2.4); Phosphorus, Blood 4.4 mg/dL (2.5-4.9); Potassium, Blood 3.7 mmol/L (3.5-5.5); Sodium, Blood 137 mmol/L (136-145); Triglycerides 126 mg/dL (30-160)
== END | disposition home or self-care (01) ==
LOC: LAB 12:55 → LAB SHORT 12:55
PROVIDERS: Internal Medicine Nephrology
DX: G71.00 Muscular dystrophy, unspecified (principal); G73.7 Myopathy in diseases classified elsewhere; E43 Unspecified severe protein-calorie malnutrition; L89.92 Pressure ulcer of unspecified site, stage 2
CPT/HCPCS: 80053; 83735; 84100; 84478; 85025

== ENCOUNTER 2022-08-29 10:45 | Emergency (ER) | payer BC, MEDICARE ==
[~2022-08-29] VITALS: Ht 170.2 cm; Wt 56.7 kg
[2022-08-29 11:31] LABS: Hematocrit 30.9 % (33.0-51.0); Hemoglobin 9.4 g/dL (11.5-16.0); Mean Corpuscular HGB 27.6 pg (26.0-34.0); Mean Corpuscular HGB Conc 30.4 g/dL (31.5-36.5); Mean Corpuscular Volume 91 fL (80-100); Mean Platelet Volume 10.7 fL (9.1-12.4); Platelet Count 135 K/mm3 (150-400); RDW Coefficient Variation 15.3 % (11.7-14.2); White Blood Cell Count 3.98 K/mm3 (4.00-11.30)
[2022-08-29 11:49] LABS: Albumin, Blood 2.7 g/dL (3.4-5.0); Albumin/Globulin Ratio 0.4 (0.8-1.8); Bilirubin, Total 0.2 mg/dL (0.1-1.0); Bun/Creatinine Ratio 31.7 (12.0-20.0); Calcium, Blood 8.1 mg/dL (8.5-10.1); Creatinine, Blood 0.88 mg/dL (0.40-1.00); Globulin, Blood 6.3 g/dL (2.2-4.0); Potassium, Blood 3.6 mmol/L (3.5-5.5)
[2022-08-29 11:52] LABS: BASOPHILS ABSOLUTE MAN 0.03 K/mm3 (0.00-0.23); BASOPHILS PERCENT MAN 1 % (0-2); EOSINOPHILS PERCENT MAN 0 % (0-6); LYMPHOCYTES ABSOLUTE MAN 2.62 K/mm3 (0.84-5.20); LYMPHOCYTES PERCENT MAN 66 % (21-46); MONOCYTES ABSOLUTE MAN 0.43 K/mm3 (0.16-1.47); MONOCYTES PERCENT MAN 11 % (4-13); NEUTROPHILS ABSOLUTE MAN 0.87 K/mm3 (1.96-9.15); SEG NEUTROPHILS PERCENT MAN 22 % (41-73); TOTAL CELLS COUNTED 100
[2022-08-29 14:03] LABS: Influenza A, PCR NEGATIVE (NEGATIVE); Influenza B, PCR NEGATIVE (NEGATIVE); Resp Syncytial Virus, PCR NEGATIVE (NEGATIVE); SARS-Cov-2 (COVID-19) PCR, MMC NEGATIVE (NEGATIVE)
== END 2022-08-29 14:55 | disposition home or self-care (01) ==
LOC: ER 10:45
PROVIDERS: Emergency Medicine; Physician Assistant
DX: T82.898A Other specified complication of vascular prosthetic devices, implants and grafts, initial encounter (principal); Y71.8 Miscellaneous cardiovascular devices associated with adverse incidents, not elsewhere classified; Z20.822 Contact with and (suspected) exposure to COVID-19; Z88.6 Allergy status to analgesic agent; Z88.0 Allergy status to penicillin; Z88.2 Allergy status to sulfonamides; Z88.5 Allergy status to narcotic agent; Z88.8 Allergy status to other drugs, medicaments and biological substances; Z79.899 Other long term (current) drug therapy
CPT/HCPCS: 0241U; 36415; 80053; 85025; J1170; J1200

== ENCOUNTER → 2022-09-01 | Outpatient (CLI) | payer BC, MEDICARE | END | disposition home or self-care (01) | DX: G71.00 Muscular dystrophy, unspecified (principal); G73.7 Myopathy in diseases classified elsewhere; E43 Unspecified severe protein-calorie malnutrition; L89.90 Pressure ulcer of unspecified site, unspecified stage ==

== ENCOUNTER 2022-09-06 06:51 | Day surgery (SDC) | payer BC, MEDICARE ==
[~2022-09-06] VITALS: Ht 170.2 cm; Wt 57.0 kg
--- NOTE | 2022-09-06 10:53 | NUR ---
1045 PATIENT RETURNED FROM THE CATHLAB S/P PROCEDURE. SBAR RECEIVED FROM ADDY KILGORE. PATEINT PLACED ON THE MONITOR, PATIENT IS GASPING FOR BREATH AND SOBBING IN PAIN , PUSHING IN THE LEFT CENTER OF HER CHEST WALL STATING SHE IS HAVING STABBING PAIN. VVS. NO EKG CHANGES NOTED IN SEVERAL LEADS ON THE MONITOR. DR. [facility] 10[address] DR. HANSEN AT THE BEDSIDE AND REASSURED THE PATIENT THAT THE PROCEDURE WAS NOT PREFORMED NEAR THIS AREA, AND THERE SHOULD NOT BE AFTER AFFECTS OF PAIN FROM THE PROCEDURE. HE ENCOURAGED THE PATIENT TO CALM AND BROUGHT HER MOTHER TO THE BEDSIDE.
--- NOTE | 2022-09-06 11:33 | NUR ---
1115 SPOKE AT LENGTH WITH THE PATIENT, SHE DECLINED TO EAT, STATED THAT PAIN WAS BETTER ADN "JUST WANTS TO GO HOME, ARCHITECTURE DRAFTER TUBE FEEDING, CRWAL IN HER OWN BED AND GO TO SLEEP". THIS WAS CLEARED WITH DR. HANSEN AND PATIENT WAS REMOVED FROM THE MONITOR, DRESSED INDEPENDENTLY ADN DISCHARGED HOME WITH ALL BELONGINGS VIA WHEELCHAIR WITH MOM PUMP SERVICER. FOLLOW UP IN CLINIC IN 2-4 WEEKS.
== END 2022-09-06 11:40 | disposition home or self-care (01) ==
LOC: MHTC 06:51
DX: T82.898A Other specified complication of vascular prosthetic devices, implants and grafts, initial encounter (principal); R23.8 Other skin changes; Z95.0 Presence of cardiac pacemaker; Z88.5 Allergy status to narcotic agent; Z88.0 Allergy status to penicillin; Z88.8 Allergy status to other drugs, medicaments and biological substances; Z88.2 Allergy status to sulfonamides
CPT/HCPCS: 76937; 99152; 99153; C1769; C1788; C1894; J0690; J1200; J1642; J1644; J2250; J2270; J3010; J7030; J7040

== ENCOUNTER → 2022-09-09 | Outpatient (CLI) | payer BC, MEDICARE ==
[2022-09-09 13:31] LABS: BASOPHILS ABSOLUTE AUTO 0.01 K/mm3 (0.00-0.23); BASOPHILS PERCENT AUTO 0 % (0-2); EOSINOPHILS ABSOLUTE AUTO 0.05 K/mm3 (0.00-0.68); EOSINOPHILS PERCENT AUTO 1 % (0-6); Hemoglobin 8.4 g/dL (11.5-16.0); IMMATURE GRAN ABSOLUTE AUTO 0.02 K/mm3 (0.00-0.10); IMMATURE GRAN PERCENT AUTO 1 % (0-1); LYMPHOCYTES ABSOLUTE AUTO 2.24 K/mm3 (0.84-5.20); LYMPHOCYTES PERCENT AUTO 57 % (21-46); MONOCYTES ABSOLUTE AUTO 0.38 K/mm3 (0.16-1.47); MONOCYTES PERCENT AUTO 10 % (4-13); Mean Corpuscular HGB 27.6 pg (26.0-34.0); Mean Corpuscular HGB Conc 31.1 g/dL (31.5-36.5); Mean Corpuscular Volume 89 fL (80-100); Mean Platelet Volume 11.1 fL (9.1-12.4); NEUTROPHILS PERCENT AUTO 31 % (41-73); Platelet Count 173 K/mm3 (150-400); RDW Coefficient Variation 14.9 % (11.7-14.2); RDW Standard Deviation 48.3 fL (35.1-46.3); Red Blood Cell Count 3.04 M/mm3 (3.80-5.20)
[2022-09-09 14:01] LABS: Alanine Aminotransfer (ALT/SGP 90 U/L (12-78); Albumin, Blood 2.4 g/dL (3.4-5.0); Albumin/Globulin Ratio 0.4 (0.8-1.8); Alk Phos 470 U/L (50-136); Anion Gap 6 mmol/L (6-16); Aspartate Aminotrans (AST/SGOT 55 U/L (12-37); Bilirubin, Total 0.5 mg/dL (0.1-1.0); Blood Urea Nitrogen 21 mg/dL (8-24); Bun/Creatinine Ratio 28.2 (12.0-20.0); CO2, Blood 25 mmol/L (21-32); Calcium, Blood 7.8 mg/dL (8.5-10.1); Chloride, Blood 104 mmol/L (98-108); Creatinine, Blood 0.74 mg/dL (0.40-1.00); Globulin, Blood 5.8 g/dL (2.2-4.0); Glomerular Filtration Rate 99 (60-); Glucose, Blood 101 mg/dL (70-99); Magnesium, Blood 2.1 mg/dL (1.6-2.4); Potassium, Blood 3.8 mmol/L (3.5-5.5); Sodium, Blood 135 mmol/L (136-145); Total Protein, Blood 8.2 g/dL (6.4-8.2); Triglycerides 101 mg/dL (30-160)
== END | disposition home or self-care (01) ==
LOC: LAB 11:50 → LAB SHORT 11:50
PROVIDERS: Internal Medicine Nephrology
DX: G73.7 Myopathy in diseases classified elsewhere (principal); G71.00 Muscular dystrophy, unspecified; E43 Unspecified severe protein-calorie malnutrition; L89.90 Pressure ulcer of unspecified site, unspecified stage
CPT/HCPCS: 80053; 83735; 84100; 84478; 85025

== ENCOUNTER → 2022-09-16 | Outpatient (CLI) | payer BC, MEDICARE ==
[2022-09-16 12:54] LABS: BASOPHILS ABSOLUTE AUTO 0.04 K/mm3 (0.00-0.23); BASOPHILS PERCENT AUTO 1 % (0-2); EOSINOPHILS ABSOLUTE AUTO 0.08 K/mm3 (0.00-0.68); EOSINOPHILS PERCENT AUTO 2 % (0-6); Hemoglobin 8.8 g/dL (11.5-16.0); IMMATURE GRAN ABSOLUTE AUTO 0.01 K/mm3 (0.00-0.10); IMMATURE GRAN PERCENT AUTO 0 % (0-1); LYMPHOCYTES ABSOLUTE AUTO 2.55 K/mm3 (0.84-5.20); LYMPHOCYTES PERCENT AUTO 62 % (21-46); MONOCYTES ABSOLUTE AUTO 0.31 K/mm3 (0.16-1.47); MONOCYTES PERCENT AUTO 8 % (4-13); Mean Corpuscular HGB 27.2 pg (26.0-34.0); Mean Corpuscular HGB Conc 30.3 g/dL (31.5-36.5); Mean Corpuscular Volume 90 fL (80-100); Mean Platelet Volume 10.6 fL (9.1-12.4); NEUTROPHILS ABSOLUTE AUTO 1.15 K/mm3 (1.96-9.15); NEUTROPHILS PERCENT AUTO 28 % (41-73); Platelet Count 196 K/mm3 (150-400); RDW Coefficient Variation 14.9 % (11.7-14.2); Red Blood Cell Count 3.23 M/mm3 (3.80-5.20); White Blood Cell Count 4.14 K/mm3 (4.00-11.30)
[2022-09-16 14:27] LABS: Magnesium, Blood 2.1 mg/dL (1.6-2.4)
[2022-09-16 14:28] LABS: Alanine Aminotransfer (ALT/SGP 70 U/L (12-78); Albumin, Blood 2.5 g/dL (3.4-5.0); Albumin/Globulin Ratio 0.4 (0.8-1.8); Alk Phos 339 U/L (50-136); Anion Gap 6 mmol/L (6-16); Aspartate Aminotrans (AST/SGOT 51 U/L (12-37); Bilirubin, Total 0.3 mg/dL (0.1-1.0); Blood Urea Nitrogen 12 mg/dL (8-24); Bun/Creatinine Ratio 16.2 (12.0-20.0); CO2, Blood 22 mmol/L (21-32); Calcium, Blood 8.6 mg/dL (8.5-10.1); Chloride, Blood 110 mmol/L (98-108); Creatinine, Blood 0.74 mg/dL (0.40-1.00); Glomerular Filtration Rate 99 (60-); Glucose, Blood 117 mg/dL (70-99); Phosphorus, Blood 3.8 mg/dL (2.5-4.9); Potassium, Blood 3.8 mmol/L (3.5-5.5); Sodium, Blood 138 mmol/L (136-145); Total Protein, Blood 8.5 g/dL (6.4-8.2); Triglycerides 112 mg/dL (30-160)
== END | disposition home or self-care (01) ==
LOC: LAB SHORT 10:45 → LAB 10:45
PROVIDERS: Internal Medicine Nephrology
DX: G71.00 Muscular dystrophy, unspecified (principal); G73.7 Myopathy in diseases classified elsewhere; E43 Unspecified severe protein-calorie malnutrition; L89.92 Pressure ulcer of unspecified site, stage 2
CPT/HCPCS: 80053; 83735; 84100; 84134; 84478; 85025

== ENCOUNTER → 2022-09-23 | Outpatient (CLI) | payer BC, MEDICARE ==
[2022-09-23 15:16] LABS: BASOPHILS ABSOLUTE AUTO 0.04 K/mm3 (0.00-0.23); BASOPHILS PERCENT AUTO 1 % (0-2); EOSINOPHILS ABSOLUTE AUTO 0.16 K/mm3 (0.00-0.68); EOSINOPHILS PERCENT AUTO 4 % (0-6); Hematocrit 29.8 % (33.0-51.0); Hemoglobin 9.1 g/dL (11.5-16.0); IMMATURE GRAN ABSOLUTE AUTO 0.01 K/mm3 (0.00-0.10); IMMATURE GRAN PERCENT AUTO 0 % (0-1); LYMPHOCYTES ABSOLUTE AUTO 2.88 K/mm3 (0.84-5.20); LYMPHOCYTES PERCENT AUTO 66 % (21-46); MONOCYTES PERCENT AUTO 7 % (4-13); Mean Corpuscular HGB 27.6 pg (26.0-34.0); Mean Corpuscular HGB Conc 30.5 g/dL (31.5-36.5); Mean Corpuscular Volume 90 fL (80-100); Mean Platelet Volume 10.4 fL (9.1-12.4); NEUTROPHILS ABSOLUTE AUTO 0.97 K/mm3 (1.96-9.15); NEUTROPHILS PERCENT AUTO 22 % (41-73); Platelet Count 157 K/mm3 (150-400); RDW Coefficient Variation 15.1 % (11.7-14.2); RDW Standard Deviation 50.3 fL (35.1-46.3); White Blood Cell Count 4.36 K/mm3 (4.00-11.30)
[2022-09-23 16:04] LABS: Magnesium, Blood 1.9 mg/dL (1.6-2.4)
[2022-09-23 16:06] LABS: Alanine Aminotransfer (ALT/SGP 62 U/L (12-78); Albumin, Blood 2.5 g/dL (3.4-5.0); Albumin/Globulin Ratio 0.4 (0.8-1.8); Alk Phos 264 U/L (50-136); Anion Gap 4 mmol/L (6-16); Aspartate Aminotrans (AST/SGOT 46 U/L (12-37); Bilirubin, Total 0.2 mg/dL (0.1-1.0); Blood Urea Nitrogen 15 mg/dL (8-24); Bun/Creatinine Ratio 20.5 (12.0-20.0); CO2, Blood 23 mmol/L (21-32); Calcium, Blood 7.9 mg/dL (8.5-10.1); Chloride, Blood 111 mmol/L (98-108); Creatinine, Blood 0.73 mg/dL (0.40-1.00); Globulin, Blood 5.7 g/dL (2.2-4.0); Glomerular Filtration Rate 100 (60-); Glucose, Blood 87 mg/dL (70-99); Phosphorus, Blood 3.3 mg/dL (2.5-4.9); Potassium, Blood 3.6 mmol/L (3.5-5.5); Sodium, Blood 138 mmol/L (136-145); Total Protein, Blood 8.2 g/dL (6.4-8.2); Triglycerides 105 mg/dL (30-160)
== END | disposition home or self-care (01) ==
LOC: LAB SHORT 13:30
PROVIDERS: Internal Medicine Nephrology
DX: E43 Unspecified severe protein-calorie malnutrition (principal); G73.7 Myopathy in diseases classified elsewhere; G71.00 Muscular dystrophy, unspecified; L89.92 Pressure ulcer of unspecified site, stage 2
CPT/HCPCS: 80053; 83735; 84100; 84478; 85025

== ENCOUNTER → 2022-11-04 | Outpatient (CLI) | payer BC, MEDICARE ==
[2022-11-04 13:42] LABS: BASOPHILS ABSOLUTE AUTO 0.03 K/mm3 (0.00-0.23); BASOPHILS PERCENT AUTO 1 % (0-2); EOSINOPHILS ABSOLUTE AUTO 0.11 K/mm3 (0.00-0.68); EOSINOPHILS PERCENT AUTO 3 % (0-6); Hematocrit 28.6 % (33.0-51.0); Hemoglobin 8.9 g/dL (11.5-16.0); IMMATURE GRAN ABSOLUTE AUTO 0.01 K/mm3 (0.00-0.10); IMMATURE GRAN PERCENT AUTO 0 % (0-1); LYMPHOCYTES ABSOLUTE AUTO 2.68 K/mm3 (0.84-5.20); LYMPHOCYTES PERCENT AUTO 61 % (21-46); MONOCYTES ABSOLUTE AUTO 0.29 K/mm3 (0.16-1.47); MONOCYTES PERCENT AUTO 7 % (4-13); Mean Corpuscular HGB 27.8 pg (26.0-34.0); Mean Corpuscular HGB Conc 31.1 g/dL (31.5-36.5); Mean Corpuscular Volume 89 fL (80-100); Mean Platelet Volume 9.8 fL (9.1-12.4); NEUTROPHILS ABSOLUTE AUTO 1.25 K/mm3 (1.96-9.15); NEUTROPHILS PERCENT AUTO 29 % (41-73); Platelet Count 167 K/mm3 (150-400); RDW Coefficient Variation 15.8 % (11.7-14.2); RDW Standard Deviation 52.7 fL (35.1-46.3); White Blood Cell Count 4.37 K/mm3 (4.00-11.30)
[2022-11-04 15:15] LABS: Alanine Aminotransfer (ALT/SGP 71 U/L (12-78); Albumin, Blood 2.6 g/dL (3.4-5.0); Albumin/Globulin Ratio 0.4 (0.8-1.8); Alk Phos 200 U/L (50-136); Anion Gap 6 mmol/L (6-16); Aspartate Aminotrans (AST/SGOT 37 U/L (12-37); Bilirubin, Direct 0.2 mg/dL (0.0-0.3); Bilirubin, Indirect 0.1 mg/dL (0.1-0.7); Bilirubin, Total 0.3 mg/dL (0.1-1.0); Blood Urea Nitrogen 18 mg/dL (8-24); Bun/Creatinine Ratio 20.6 (12.0-20.0); CHOL/HDL RATIO 3.7; CO2, Blood 23 mmol/L (21-32); Calcium, Blood 7.7 mg/dL (8.5-10.1); Chloride, Blood 105 mmol/L (98-108); Cholesterol 93 mg/dL (50-200); Creatinine, Blood 0.87 mg/dL (0.40-1.00); Globulin, Blood 5.9 g/dL (2.2-4.0); Glomerular Filtration Rate 81 (60-); Glucose, Blood 116 mg/dL (70-99); HDL Cholesterol 25 mg/dL (>39); LDL/HDL RATIO 2.1; Low Density Lipoprotein Chol 52 mg/dL (0-110); Magnesium, Blood 1.9 mg/dL (1.6-2.4); Phosphorus, Blood 2.9 mg/dL (2.5-4.9); Potassium, Blood 3.9 mmol/L (3.5-5.5); Sodium, Blood 134 mmol/L (136-145); Total Protein, Blood 8.5 g/dL (6.4-8.2); Triglycerides 81 mg/dL (30-160); Very Low Density Lipoprot Chol 16 mg/dL (6-32)
[2022-11-08 11:08] LABS: SELENIUM, SERUM/PLASMA 65 ug/L (93-198)
== END | disposition home or self-care (01) ==
LOC: LAB 11:40 → LAB SHORT 11:40
PROVIDERS: Internal Medicine Nephrology
DX: E43 Unspecified severe protein-calorie malnutrition (principal); G73.7 Myopathy in diseases classified elsewhere; G71.00 Muscular dystrophy, unspecified; L89.92 Pressure ulcer of unspecified site, stage 2; N18.2 Chronic kidney disease, stage 2 (mild); D63.1 Anemia in chronic kidney disease; N25.81 Secondary hyperparathyroidism of renal origin; E55.9 Vitamin D deficiency, unspecified; E78.00 Pure hypercholesterolemia, unspecified; R76.9 Abnormal immunological finding in serum, unspecified; R94.5 Abnormal results of liver function studies; R94.6 Abnormal results of thyroid function studies
CPT/HCPCS: 80053; 80061; 82248; 82306; 82525; 83735; 84100; 84255; 84630; 85025

== ENCOUNTER 2022-11-25 12:29 | Emergency (ER) | payer BC, MEDICARE ==
[~2022-11-25] VITALS: Ht 157.5 cm; Wt 56.7 kg
[2022-11-25] MEDS ORDERED: Benadryl 50 mg50 MG PO (12:43)
== END 2022-11-25 12:52 | disposition home or self-care (01) ==
LOC: ER 12:29
DX: U07.1 COVID-19 (principal); Z88.0 Allergy status to penicillin; Z88.2 Allergy status to sulfonamides; Z88.8 Allergy status to other drugs, medicaments and biological substances; Z88.5 Allergy status to narcotic agent; Z79.899 Other long term (current) drug therapy; Z95.0 Presence of cardiac pacemaker
CPT/HCPCS: 99283

== ENCOUNTER 2022-12-06 11:06 | Day surgery (SDC) | payer BC, MEDICARE ==
[~2022-12-06 11:06] MED LIST changes: +Benadryl 50 mg50 MG PO
[2022-12-06] MEDS ORDERED: DIPHENHYDR50 MG/1 M1 IV (11:53)
[2022-12-06] MEDS ORDERED: HYDMOR4 PO (11:54)
== END 2022-12-06 11:55 | disposition home or self-care (01) ==
LOC: ATC 11:06
DX: Z45.2 Encounter for adjustment and management of vascular access device (principal)
CPT/HCPCS: 96523

== ENCOUNTER → 2023-02-10 | Outpatient (CLI) | payer BC, MEDICARE ==
[2023-02-10 12:38] LABS: BASOPHILS ABSOLUTE AUTO 0.03 K/mm3 (0.00-0.23); BASOPHILS PERCENT AUTO 1 % (0-2); EOSINOPHILS ABSOLUTE AUTO 0.12 K/mm3 (0.00-0.68); EOSINOPHILS PERCENT AUTO 3 % (0-6); Hematocrit 28.3 % (33.0-51.0); Hemoglobin 8.6 g/dL (11.5-16.0); IMMATURE GRAN ABSOLUTE AUTO 0.01 K/mm3 (0.00-0.10); IMMATURE GRAN PERCENT AUTO 0 % (0-1); LYMPHOCYTES ABSOLUTE AUTO 2.08 K/mm3 (0.84-5.20); LYMPHOCYTES PERCENT AUTO 52 % (21-46); MONOCYTES ABSOLUTE AUTO 0.36 K/mm3 (0.16-1.47); MONOCYTES PERCENT AUTO 9 % (4-13); Mean Corpuscular HGB 26.7 pg (26.0-34.0); Mean Corpuscular HGB Conc 30.4 g/dL (31.5-36.5); Mean Corpuscular Volume 88 fL (80-100); Mean Platelet Volume 10.1 fL (9.1-12.4); NEUTROPHILS ABSOLUTE AUTO 1.44 K/mm3 (1.96-9.15); NEUTROPHILS PERCENT AUTO 36 % (41-73); Platelet Count 188 K/mm3 (150-400); RDW Coefficient Variation 14.1 % (11.7-14.2); RDW Standard Deviation 45.4 fL (35.1-46.3); Red Blood Cell Count 3.22 M/mm3 (3.80-5.20); White Blood Cell Count 4.04 K/mm3 (4.00-11.30)
[2023-02-10 12:48] LABS: Alanine Aminotransfer (ALT/SGP 56 U/L (12-78); Albumin, Blood 2.8 g/dL (3.4-5.0); Albumin/Globulin Ratio 0.5 (0.8-1.8); Alk Phos 223 U/L (50-136); Anion Gap 1 mmol/L (6-16); Aspartate Aminotrans (AST/SGOT 48 U/L (12-37); Bilirubin, Total 0.3 mg/dL (0.1-1.0); Blood Urea Nitrogen 19 mg/dL (8-24); CO2, Blood 27 mmol/L (21-32); Calcium, Blood 7.8 mg/dL (8.5-10.1); Chloride, Blood 106 mmol/L (98-108); Creatinine, Blood 0.79 mg/dL (0.40-1.00); Globulin, Blood 6.1 g/dL (2.2-4.0); Glomerular Filtration Rate 91 (60-); Glucose, Blood 107 mg/dL (70-99); Phosphorus, Blood 3.2 mg/dL (2.5-4.9); Potassium, Blood 4.1 mmol/L (3.5-5.5); Sodium, Blood 134 mmol/L (136-145); Total Protein, Blood 8.9 g/dL (6.4-8.2); Triglycerides 92 mg/dL (30-160)
== END | disposition home or self-care (01) ==
LOC: LAB 10:00 → LAB SHORT 10:00
PROVIDERS: Internal Medicine Nephrology
DX: E43 Unspecified severe protein-calorie malnutrition (principal); G73.7 Myopathy in diseases classified elsewhere; G71.00 Muscular dystrophy, unspecified; L89.92 Pressure ulcer of unspecified site, stage 2
CPT/HCPCS: 80053; 83735; 84100; 84478; 85025

== ENCOUNTER → 2023-03-10 | Outpatient (CLI) | payer BC, MEDICARE ==
[2023-03-10 12:22] LABS: BASOPHILS ABSOLUTE AUTO 0.07 K/mm3 (0.00-0.23); BASOPHILS PERCENT AUTO 1 % (0-2); EOSINOPHILS PERCENT AUTO 8 % (0-6); Hematocrit 30.5 % (33.0-51.0); Hemoglobin 9.2 g/dL (11.5-16.0); IMMATURE GRAN ABSOLUTE AUTO 0.01 K/mm3 (0.00-0.10); IMMATURE GRAN PERCENT AUTO 0 % (0-1); LYMPHOCYTES ABSOLUTE AUTO 2.61 K/mm3 (0.84-5.20); LYMPHOCYTES PERCENT AUTO 40 % (21-46); MONOCYTES ABSOLUTE AUTO 0.37 K/mm3 (0.16-1.47); MONOCYTES PERCENT AUTO 6 % (4-13); Mean Corpuscular HGB 26.7 pg (26.0-34.0); Mean Corpuscular HGB Conc 30.2 g/dL (31.5-36.5); Mean Corpuscular Volume 88 fL (80-100); Mean Platelet Volume 9.9 fL (9.1-12.4); NEUTROPHILS ABSOLUTE AUTO 2.94 K/mm3 (1.96-9.15); NEUTROPHILS PERCENT AUTO 45 % (41-73); Platelet Count 213 K/mm3 (150-400); RDW Coefficient Variation 15.6 % (11.7-14.2); RDW Standard Deviation 50.6 fL (35.1-46.3); Red Blood Cell Count 3.45 M/mm3 (3.80-5.20)
[2023-03-10 13:01] LABS: Magnesium, Blood 1.9 mg/dL (1.6-2.4)
[2023-03-10 13:04] LABS: Alanine Aminotransfer (ALT/SGP 220 U/L (12-78); Albumin, Blood 2.5 g/dL (3.4-5.0); Albumin/Globulin Ratio 0.4 (0.8-1.8); Alk Phos 507 U/L (50-136); Anion Gap 5 mmol/L (6-16); Aspartate Aminotrans (AST/SGOT 174 U/L (12-37); Bilirubin, Total 0.3 mg/dL (0.1-1.0); Blood Urea Nitrogen 14 mg/dL (8-24); Bun/Creatinine Ratio 17.9 (12.0-20.0); CO2, Blood 24 mmol/L (21-32); Calcium, Blood 8.1 mg/dL (8.5-10.1); Chloride, Blood 108 mmol/L (98-108); Creatinine, Blood 0.78 mg/dL (0.40-1.00); Globulin, Blood 6.3 g/dL (2.2-4.0); Glomerular Filtration Rate 92 (60-); Glucose, Blood 94 mg/dL (70-99); Phosphorus, Blood 2.3 mg/dL (2.5-4.9); Potassium, Blood 3.9 mmol/L (3.5-5.5); Sodium, Blood 137 mmol/L (136-145); Total Protein, Blood 8.8 g/dL (6.4-8.2); Triglycerides 99 mg/dL (30-160)
== END | disposition home or self-care (01) ==
LOC: LAB 10:30 → LAB SHORT 10:30
PROVIDERS: Internal Medicine Nephrology
DX: G73.7 Myopathy in diseases classified elsewhere (principal); G71.00 Muscular dystrophy, unspecified; E43 Unspecified severe protein-calorie malnutrition; L89.92 Pressure ulcer of unspecified site, stage 2
CPT/HCPCS: 80053; 83735; 84100; 84478; 85025

== ENCOUNTER → 2023-03-17 | Outpatient (CLI) | payer BC, MEDICARE ==
[2023-03-17 14:07] LABS: Percent Saturation 29.7 % (15.0-50.0)
== END | disposition home or self-care (01) ==
LOC: LAB 11:00 → LAB SHORT 11:00
PROVIDERS: Internal Medicine Nephrology
DX: E43 Unspecified severe protein-calorie malnutrition (principal); G73.7 Myopathy in diseases classified elsewhere; G71.00 Muscular dystrophy, unspecified; L89.92 Pressure ulcer of unspecified site, stage 2
CPT/HCPCS: 82728; 83540; 83550

== ENCOUNTER 2023-04-20 17:08 | Observation (INO) | payer BC, MEDICARE ==
[~2023-04-20] VITALS: Ht 172.7 cm; Wt 53.2 kg
[2023-04-20 21:08] LABS: Source, Urine Clean Catch
[2023-04-20 21:18] LABS: Bilirubin, Urine Neg (Neg); Blood, Urine 5+ (Neg); Color, Urine Yellow (P-Yellow); Glucose Qualitative, Urine Neg (Neg); Ketones, Urine Neg (Neg); Leukocyte Esterase, Urine 2+ (Neg); Nitrite, Urine Neg (Neg); Protein, Urine 2+ (Neg); Specific Gravity, Urine 1.015 (1.003-1.022); Urobilinogen, Urine 1+ (Normal)
[2023-04-20 21:26] LABS: BASOPHILS ABSOLUTE AUTO 0.03 K/mm3 (0.00-0.23); BASOPHILS PERCENT AUTO 0 % (0-2); EOSINOPHILS ABSOLUTE AUTO 0.11 K/mm3 (0.00-0.68); EOSINOPHILS PERCENT AUTO 2 % (0-6); Hematocrit 27.5 % (33.0-51.0); Hemoglobin 8.3 g/dL (11.5-16.0); IMMATURE GRAN ABSOLUTE AUTO 0.04 K/mm3 (0.00-0.10); IMMATURE GRAN PERCENT AUTO 1 % (0-1); LYMPHOCYTES ABSOLUTE AUTO 1.39 K/mm3 (0.84-5.20); LYMPHOCYTES PERCENT AUTO 20 % (21-46); MONOCYTES ABSOLUTE AUTO 0.49 K/mm3 (0.16-1.47); MONOCYTES PERCENT AUTO 7 % (4-13); Mean Corpuscular HGB 26.9 pg (26.0-34.0); Mean Corpuscular HGB Conc 30.2 g/dL (31.5-36.5); Mean Corpuscular Volume 89 fL (80-100); Mean Platelet Volume 10.7 fL (9.1-12.4); NEUTROPHILS PERCENT AUTO 71 % (41-73); Platelet Count 154 K/mm3 (150-400); RDW Coefficient Variation 15.7 % (11.7-14.2); RDW Standard Deviation 51.4 fL (35.1-46.3); Red Blood Cell Count 3.08 M/mm3 (3.80-5.20); White Blood Cell Count 7.06 K/mm3 (4.00-11.30)
[2023-04-20 21:27] LABS: Appearance, Urine Hazy (Clear)
[2023-04-20 21:29] LABS: Amorphous Mod (0-Heavy); Bacteria Many /hpf; Mucus Light (0-Heavy); Squamous Epithelial Cells Rare /hpf (Few)
[2023-04-20 21:30] LABS: Transitional Epithelial Cells Rare /hpf (0-Rare)
[2023-04-20 21:45] LABS: Albumin, Blood 1.8 g/dL (3.4-5.0); Albumin/Globulin Ratio 0.3 (0.8-1.8); Bilirubin, Total 0.4 mg/dL (0.1-1.0); Calcium, Blood 7.3 mg/dL (8.5-10.1); Creatinine, Blood 0.89 mg/dL (0.40-1.00); Globulin, Blood 5.6 g/dL (2.2-4.0); Magnesium, Blood 2.1 mg/dL (1.6-2.4); Potassium, Blood 2.9 mmol/L (3.5-5.5); Total Protein, Blood 7.4 g/dL (6.4-8.2)
[2023-04-21 00:34] VITALS: BP 101/65
--- NOTE | 2023-04-21 01:34 | NUR ---
PATIENT IS A NEW ADMIT FROM THE ED. AXO X4 AND SBA TRANSFER FROM [facility] TO BED. HX MUSCULAR DYSTROPHY. VERY ANXIOUS ON ADMIT. IV ALBUMIN INFUSING FROM ED THROUGH MEDIPORT. TELEMETRY PLACED AND TECH REPORTS NSR 83. REPORTED RIGHT SHOULDER PAIN AND RECEIVED IV FENTANYL JUST PRIOR TO ADMIT IN ED. ON ROOM AIR. DENIES CHEST PAIN, SOB, AND N/V. ORIENTED TO ROOM AND CALL LIGHT SYSTEM. REPORTS WANTS TO WATCH TV AFTER ASSESSMENT. REPORTS LIVES WITH IN [place].
[2023-04-21 03:24] VITALS: BP 90/54
--- NOTE | 2023-04-21 04:01 | NUR ---
SHIFT SUMMARY PATIENT HAD NO ACUTE CHANGES. REPORTS RIGHT SHOULDER PAIN. REPORTS TAKES PO DILAUDID AT HOME AND HOSPITALIST DR NARAYANAN ORDERED HOME DILAUDID DOSE AND BEDTIME TRAZODONE 100 MG. AXO X4 AND SBA TO BR. LOPEZ LEFT UPPER CHEST INTACT INFUSING NS @ 75 mL/HR X ONE. ASSISTANT TO THE VICE PRESIDENT REPORTS NSR 87. ANXIOUS T/O SHIFT. DENIES CHEST PAIN, SOB, AND N/V. ON ROOM AIR. VSS/AFEBRILE. WATCHED TV AFTER ASSESSMENT. CALL LIGHT IN REACH. BED IN LOWEST POSITION. WILL CONTINUE TO MONITOR UNTIL DAY SHIFT NURSE ASSUMES CARE.
[2023-04-21 05:51] LABS: BASOPHILS ABSOLUTE AUTO 0.01 K/mm3 (0.00-0.23); BASOPHILS PERCENT AUTO 0 % (0-2); EOSINOPHILS ABSOLUTE AUTO 0.01 K/mm3 (0.00-0.68); EOSINOPHILS PERCENT AUTO 0 % (0-6); Hematocrit 26.5 % (33.0-51.0); Hemoglobin 8.2 g/dL (11.5-16.0); IMMATURE GRAN ABSOLUTE AUTO 0.03 K/mm3 (0.00-0.10); IMMATURE GRAN PERCENT AUTO 1 % (0-1); LYMPHOCYTES ABSOLUTE AUTO 0.86 K/mm3 (0.84-5.20); LYMPHOCYTES PERCENT AUTO 21 % (21-46); MONOCYTES ABSOLUTE AUTO 0.24 K/mm3 (0.16-1.47); MONOCYTES PERCENT AUTO 6 % (4-13); Mean Corpuscular HGB Conc 30.9 g/dL (31.5-36.5); Mean Corpuscular Volume 87 fL (80-100); Mean Platelet Volume 11.3 fL (9.1-12.4); NEUTROPHILS ABSOLUTE AUTO 3.04 K/mm3 (1.96-9.15); NEUTROPHILS PERCENT AUTO 73 % (41-73); Platelet Count 124 K/mm3 (150-400); RDW Coefficient Variation 15.7 % (11.7-14.2); RDW Standard Deviation 50.1 fL (35.1-46.3); Red Blood Cell Count 3.04 M/mm3 (3.80-5.20); White Blood Cell Count 4.19 K/mm3 (4.00-11.30)
[2023-04-21 06:22] LABS: Albumin, Blood 2.1 g/dL (3.4-5.0); Albumin/Globulin Ratio 0.4 (0.8-1.8); Bilirubin, Total 0.4 mg/dL (0.1-1.0); Bun/Creatinine Ratio 45.3 (12.0-20.0); Calcium, Blood 7.6 mg/dL (8.5-10.1); Creatinine, Blood 0.82 mg/dL (0.40-1.00); Globulin, Blood 5.2 g/dL (2.2-4.0); Potassium, Blood 3.8 mmol/L (3.5-5.5); Total Protein, Blood 7.3 g/dL (6.4-8.2)
--- NOTE | 2023-04-21 09:39 | NUR ---
[facility] RN CALLED AND REQUESTED MAGNESIUM, TRIGLICERIDES AND PHOSPHORUS BE ADDED ON TO LABS FOR TPN ADMINISTRATION. LABS ADDED TO AM LAB DRAW.
[2023-04-21] MEDS ORDERED: HYDCOR20 PO (09:52)
[2023-04-21] MEDS ORDERED: CEPH500 PO (09:52)
[2023-04-21 10:35] LABS: Magnesium, Blood 2.2 mg/dL (1.6-2.4); Phosphorus, Blood 3.7 mg/dL (2.5-4.9); Triglycerides 114 mg/dL (30-160)
[2023-04-21 10:40] LABS: Free Thyroxine 1.23 ng/dL (0.70-1.60); Thyroid Stimulating Hormone 0.915 uIU/mL (0.360-4.800)
--- NOTE | 2023-04-21 16:57 | NUR ---
THIS RN REPORTED TO BC DALY. BC DALY ASSUMED CARE FROM 1000 TO 1300.
== END 2023-04-21 11:11 | disposition home or self-care (01) ==
LOC: ER 17:08 → MEDS 17:09
PROVIDERS: Internal Medicine; Physician Assistant; ADMIT Internal Medicine
DX: R62.7 Adult failure to thrive (principal); E27.40 Unspecified adrenocortical insufficiency; R19.7 Diarrhea, unspecified; R30.0 Dysuria; E86.0 Dehydration; E87.6 Hypokalemia; D64.9 Anemia, unspecified; G89.29 Other chronic pain; D63.8 Anemia in other chronic diseases classified elsewhere; I95.1 Orthostatic hypotension; M19.90 Unspecified osteoarthritis, unspecified site; E43 Unspecified severe protein-calorie malnutrition; Z68.1 Body mass index [BMI] 19.9 or less, adult; Z86.718 Personal history of other venous thrombosis and embolism; Z88.0 Allergy status to penicillin; Z88.5 Allergy status to narcotic agent; Z88.8 Allergy status to other drugs, medicaments and biological substances; Z79.01 Long term (current) use of anticoagulants; Z79.899 Other long term (current) drug therapy
CPT/HCPCS: 36415; 51701; 73030; 73120; 80053; 81001; 83605; 83735; 83880; 84100; 84145; 84300; 84439; 84443; 84478; 85025; 87086; 93005; 93010; 96361; 96365; 96366; 96368; 96372; 96375; 96376; 99285-25; A9270; G0378; J0696; J1200; J1642; J1650; J1720; J3010; J3480; J7030; J7050; P9047